=== PATIENT | female | born 1940 | race Caucasian/White ===

== ENCOUNTER 2017-12-26 17:02 | Inpatient (IN) | payer MEDICARE, MEDICAID ==
[2017-12-26] MEDS ORDERED: Sodium Chloride 0.9% 1,000 ML IV ONE (17:25)
--- NOTE | 2017-12-26 17:27 | EDM.PDOC ---
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 No family is present. As per care give, the family is in [place], and the patient is a full code. BP 129/68 Pulse ox 96% Pulse 98 temp 97.4 Onset Date: 12/19/17 Onset Time: 08:00 Duration: Week(s):, Getting Worse Location: Reports: Generalized (mental status) Quality: Reports: Other Severity: Severe Improves with: Reports: Rest Worsens with: Reports: Movement Context: Reports: Other (poor fluid intake) Associated Symptoms: Reports: Confusion, Cough, Loss of Appetite, Weakness - Related Data Allergies Allergy/AdvReac Type Severity Reaction Status Date / Time No Known Allergies Allergy Verified 12/26/17 17:47 Home Meds: Home Meds Calcium Carbonate [Calcium] 1,500 mg PO DAILY 12/26/17 [History] Cholecalciferol (Vitamin D3) [Vitamin D3] 2,000 unit PO DAILY 12/26/17 [History] Fexofenadine [Maricruz] 180 mg PO DAILY 12/26/17 [History] Iron/Multivits,Stress Formula [Stress Formula with Iron] 1 tab PO DAILY [History] Levofloxacin 750 mg PO DAILY 12/26/17 [History] Nabumetone [Relafen] 750 mg PO 18 12/26/17 [History] levETIRAcetam [Keppra] 500 mg PO 12/26/17 [History] ED ROS GENERAL - Review of Systems Review Of Systems: Unable To Obtain (nonverbal) - Physical Exam Exam: See Below Exam Limited By: Altered Mental Status General Appearance: Lethargic, Moderate Distress Eye Exam: Right Eye: Other (Right puplile 2 mm left pupil 4 mm) Ears: Normal External Exam Nose: Normal Inspection Throat/Mouth: Normal Oropharynx, No Airway Compromise, Other (dry mucosal membrane) Head Exam: Atraumatic, Normocephalic Neck: Normal Inspection, Supple, Non-Tender Respiratory/Chest: No Respiratory Distress, Lungs Clear, Normal Breath Sounds Cardiovascular: Normal Peripheral Pulses, Regular Rate, Rhythm, No Edema GI/Abdominal: Normal Bowel Sounds, Soft, Non-Tender, No Organomegaly (Female) Exam: Deferred Rectal (Female) Exam: Deferred Neuro Exam (Abbreviated): Inattentive, Other (lethargic) Back Exam: Normal Inspection, Full Range of Motion Extremities: Normal Inspection, Normal Range of Motion, Non-Tender, No Pedal Edema, Normal Capillary Refill Psychiatric: Depressed Mood, Flat Affect Skin Exam: Warm, Dry, Intact, Normal Color, No Rash Course - Vital Signs Text/Narrative:: 77 y.o.w.f came from a penitentiary to the ed due due "non healing pneumonia" and declining mental status to thye point she does not anymore eat, drink and communicate. No family is present. As per care give, the family is in [place], and the patient is a full code. BP 129/68 Pulse ox 96% Pulse 98 temp 97.4 PE: Thin 77 y.o.w.f with mental status change, not able to communicate, H/O pneumonia Imaging: Head CT: Ventricular size increased, no other acute changes. CXR right lower lung infiltrate, official report is pending Labs: WBC 12.6 HGB 15.8 Na 166 CL 125 Cr 1.5 JOVANA 54 GFR 33 ProBNP 5057 Impression: Mental status changes, Hypernatremia, Hyperchloremia, dehydration, CRI Tx: NS. Levoquin i.v Reexam: Improved some Plan: Admit to ICU Last Recorded V/S: Last Vital Signs Temp 35.1 C L 12/27/17 04:00 Pulse 100 12/26/17 23:00 Resp 22 H 12/27/17 07:00 BP 87/52 L 12/27/17 07:00 Pulse Ox 93 L 12/27/17 07:00 - Orders/Labs/Meds Orders: Active Orders 24 hr Category Date Time Status Patient Status [ADT] Routine ADT 12/26/17 18:23 Active Oxygen Therapy [RC] PRN Care 12/26/17 18:23 Active VTE/DVT Education [RC] Per Unit Routine Care 12/26/17 18:23 Active Vital Signs [RC] Q4H Care 12/26/17 18:23 Active UA W/MICROSCOPIC [URIN] Stat Lab 12/26/17 23:00 Ordered Sodium Chloride 0.9% [Saline Flush] Med 12/26/17 18:01 Active 10 ml FLUSH ASDIRECTED PRN Saline Lock Insert [OM.PC] Routine Oth 12/26/17 18:01 Ordered Medication Orders Levofloxacin/Dextrose 750 mg/ (Premix) 150 mls @ 100 mls/hr IV Q48H DWAIN Last Admin: 12/27/17 09:35 Dose: 100 mls/hr Sodium Chloride (Normal Saline) 1,000 mls @ 100 mls/hr IV ASDIRECTED DWAIN Last Admin: 12/27/17 08:40 Dose: 100 mls/hr Levetiracetam (Keppra) 500 mg PO [facility] Last Admin: 12/27/17 10:16 Dose: 500 mg Sodium Chloride (Saline Flush) 10 ml FLUSH ASDIRECTED PRN PRN Reason: Keep Vein Open Last Admin: 12/26/17 18:01 Dose: 10 ml Labs: Laboratory Tests 12/26/17 12/26/17 12/26/17 Range/Units 17:58 17:58 17:58 WBC 12.1 H (4.5-12.0) X10-3/uL RBC 5.45 H (3.23-5.20) x10(6)uL Hgb 15.8 H (11.5-15.5) g/dL Hct 49.9 (30.0-51.3) % MCV 91.6 (80-96) fL MCH 29.0 (27.7-33.6) pg MCHC 31.6 L (32.2-35.4) g/dL RDW 14.5 (11.5-15.5) % Plt Count 176 (125-369) X10(3)uL MPV 10.6 H (7.4-10.4) fL Neut % (Auto) 74.0 (46-82) % Lymph % (Auto) 14.0 (13-37) % [place] % (Auto) 8.5 (4-12) % Eos % (Auto) 3 (1.0-5.0) % Baso % (Auto) 1 (0-2) % Neut # (Auto) 9.0 H (1.6-8.3) # Lymph # (Auto) 1.7 (0.6-5.0) # [place] # (Auto) 1.0 (0.0-1.3) # Eos # (Auto) 0.3 (0.0-0.8) # Baso # (Auto) 0.1 (0.0-0.2) # Sodium 166 H* (135-145) mmol/L Potassium 4.0 (3.5-5.3) mmol/L Chloride 125 H* (100-110) mmol/L Carbon Dioxide 30 (21-32) mmol/L BUN 54 H (7-18) mg/dL Creatinine 1.5 H (0.55-1.02) mg/dL Est Cr Clr Drug Dosing TNP Estimated GFR (MDRD) 33 L (>60) BUN/Creatinine Ratio 36.0 H (9-20) Glucose 98 (80-116) mg/dL Calcium 10.7 H (8.6-10.2) mg/dL NT-Pro-B Natriuret Pep 5405 H* (<=450) pg/mL Meds: Medications Generic Name Dose Route Start Last Admin Trade Name Freq PRN Reason Stop Dose Admin Levofloxacin/Dextrose 750 mg/ 150 mls @ 100 mls/hr 12/27/17 09:00 12/27/17 09 :35 Premix IV 100 mls/hr Q48H DWAIN Administration Sodium Chloride 1,000 mls @ 100 mls/hr 12/27/17 08:45 12/27/17 08:40 Normal Saline IV 100 mls/hr ASDIRECTED DWAIN Administration Levetiracetam 500 mg 12/27/17 10:00 12/27/17 10:16 Keppra PO 500 mg 10,18 DWAIN Administration Sodium Chloride 10 ml 12/26/17 18:01 12/26/17 18:01 Saline Flush FLUSH 10 ml ASDIRECTED PRN Administration Keep Vein Open Discontinued Medications Generic Name Dose Route Start Last Admin Trade Name Freq PRN Reason Stop Dose Admin Sodium Chloride 1,000 mls @ 999 mls/hr 12/26/17 17:25 12/26/17 18:00 Normal Saline IV 12/26/17 18:25 999 mls/hr .BOLUS ONE Administration Sodium Chloride 1,000 mls @ 999 mls/hr 12/26/17 18:30 12/26/17 19:04 Sodium Chloride 0.45% IV 999 mls/hr ASDIRECTED DWAIN Administration Sodium Chloride 1,000 mls @ 125 mls/hr 12/26/17 20:00 12/27/17 04:33 Sodium Chloride 0.45% IV 125 mls/hr ASDIRECTED DWAIN Administration Departure - Departure Time of Disposition: 22:00 Disposition: Admitted As Inpatient 64 Condition: Fair Clinical Impression: Hypernatremia - Discharge Information - My Orders Last 24 Hours: My Active Orders 12/26/17 18:01 Sodium Chloride 0.9% [Saline Flush] 10 ml FLUSH ASDIRECTED PRN Saline Lock Insert [OM.PC] Routine 12/26/17 18:23 Patient Status [ADT] Routine Oxygen Therapy [RC] PRN VTE/DVT Education [RC] Per Unit Routine Vital Signs [RC] Q4H 12/26/17 23:00 UA W/MICROSCOPIC [URIN] Stat - Assessment/Plan Last 24 Hours: My Active Orders 12/26/17 18:01 Sodium Chloride 0.9% [Saline Flush] 10 ml FLUSH ASDIRECTED PRN Saline Lock Insert [OM.PC] Routine 12/26/17 18:23 Patient Status [ADT] Routine Oxygen Therapy [RC] PRN VTE/DVT Education [RC] Per Unit Routine Vital Signs [RC] Q4H 12/26/17 23:00 UA W/MICROSCOPIC [URIN] Stat
[2017-12-26] MEDS: Sodium Chloride 0.9% 10 ML Syringe FLUSH PRN (18:01)
[2017-12-26] MEDS ORDERED: Sodium Chloride 0.45% 1,000 ML IV SCH (18:30)
[2017-12-26] MEDS: Sodium Chloride 0.45% 1,000 ML IV SCH (19:05)
[2017-12-26] MEDS ORDERED: Sodium Chloride 0.9% 1,000 ML IV SCH (20:00)
[2017-12-27] MEDS: Sodium Chloride 0.45% 1,000 ML IV SCH (04:33)
[2017-12-27] MEDS: Sodium Chloride 0.9% 1,000 ML IV SCH ×2 (08:40→20:03)
[2017-12-27] MEDS ORDERED: Levofloxacin/Dextrose 5%-Water 750 MG in Premix Bag 1 BAG IV SCH (09:00)
[2017-12-27] MEDS: levETIRAcetam 500 MG Tab PO SCH ×2 (10:16→18:28)
--- NOTE | 2017-12-27 11:07 | CT ---
INDICATION: Mental status changes. CT HEAD WITHOUT CONTRAST: Serial contiguous 2.5 and 5-mm sections were obtained through the brain without contrast, 12/26/2017, and compared with 02/25. Total Exam DLP = 1094.32 mGy-cm. A shunt tube is again noted in place at the foramen magnum extending through the posterior fossa, into the posteroparietal area and then into the temporal area on the left. No other cranial abnormality was identified. There is grove for the tube in the occipital bone. There appears to be a small air-fluid level in the left maxillary antrum. Paranasal sinuses were otherwise unremarkable. Mastoid air cells are very minimal in number. Degenerative changes are noted at the atlantoodontoid joint. Calcifications are noted in the vertebral and internal carotid arteries as previously, and appear more prominent at this time. Massively prominent lateral ventricles are again noted, much larger on the left than right, with the termination of the shunt tube at the temporal horn of the left lateral ventricle. No shift of midline structures was identified. A slight increase in size of the lateral ventricles is suggested compared with the previous study of 2008. Cortical sulci appear similar. No other significant interval change or acute process, such as a bleeding site or hematoma could be identified. IMPRESSION: 1. No definite acute abnormality. However, the lateral ventricles appear to be slightly more prominent than on the previous study. 2. Shunt tube remains in place. 3. Cerebrovascular disease is present with arterial calcifications slightly more prominent in the vertebral and internal carotid arteries. 4. Question sinusitis left maxillary antrum. Report was called to Dr. Figueredo at 1833 hours, 12/26/2017 [facility]
--- NOTE | 2017-12-27 11:15 | CR ---
INDICATION: Mental status changes. CHEST: Portable AP upright view of the chest 12/26/2017 was compared with 12/23 image from the clinic and revealed an appearance of increased prominence of upper lung field pulmonary vasculature, raising question of a mild degree of CHF or pulmonary vascular congestion from other etiology. The heart does appear to be somewhat enlarged, compatible with CHF. The aorta is tortuous and calcified in the arch area. Mass density is noted at the azygos node area. This is unchanged. IMPRESSION: 1. ASHD with cardiomegaly, possible mild or early CHF. Minimal interstitial lung edema versus fibrosis also. 2. ? Large mass at the azygos node area - suprahilar on the right - neoplasia vs. Pulmonary artery dilatation. MTDD
--- NOTE | 2017-12-27 11:27 | CT ---
INDICATION: Abnormal chest x-ray, non-resolving pneumonia. Chronic renal failure. COMPUTERIZED TOMOGRAPHY OF THE CHEST WITHOUT CONTRAST: Spiral 2.5-mm axial sections were obtained through the chest with sagittal and coronal reconstructions, 12/27/2017. Comparison chest x-ray from 12/26/2017 is noted. Total Exam DLP = 256.59 mGy-cm. Moderate apical scarring is noted on the right, minimal on the left. On the right, the scarring extends into the suprahilar area. What appears to be fibrosis is noted in the lingula. The possibility of a mass in that area is difficult to entirely exclude, but is felt to be less likely than fibrosis. There also appears to be fibrosis in the middle lobe of mild degree. Minimal patchy pneumonia is difficult to entirely exclude in some of these areas of probable fibrosis. However, no consolidating pneumonia or effusion was identified. No nodular masses are noted in the lungs, torito, or mediastinum. The appearance of a mass in the area of the azygos node - suprahilar on the right - is produced by a dilated right main pulmonary artery, which measured 32 mm transversely. The left is also dilated, measuring 34 mm. The main pulmonary artery measured 42 mm, which is also significantly enlarged, the upper limits of normal being approximately 29 mm. No mediastinal masses were seen. Calcifications are noted in the aorta, which is normal in caliber. Calcifications are also noted in coronary arteries with suggestion of mild cardiac enlargement. No gross abnormality is noted in the upper abdomen included on the study. IMPRESSION: 1. Pulmonary artery dilatation responsible for the appearance of a mass in the right suprahilar - azygos node area. Pulmonary hypertension is suggested with this appearance. Exact etiology is indeterminate. 2. ASHD with mild cardiomegaly. 3. Multiple areas of heavy markings in the lungs, likely fibrotic in nature, although minimal patchy pneumonia is difficult to entirely exclude in some of these areas. No gross consolidating pneumonia or effusion was seen. 4. ASD. MTDD
--- NOTE | 2017-12-27 14:05 | PCM.HP ---
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 A urinalysis was ordered but not collected and while waiting on this patient was brought into the clinic on 12/23 and seen by a provider. She wasn't eating well, was not as responsive, they had a difficult time collecting the urine sample and when brought into the clinic her blood pressure was 96/70 with a pulse of 102. Was afebrile but had rales on the right lower lobe. Blood work showed a white count of almost 17,000, hemoglobin 16.4, significant left shift of 14.4. Test x-ray was done and showed possible bibasilar pneumonia, nodular mass in the mediastinum on the right. CT scan was recommended for further evaluation. Patient was treated with levofloxacin 750 mg by mouth daily for 5 days and discharged from the clinic back to the facility. She presented to the emergency department on the day of admission with increased lethargy, not taking by mouth intake, essentially fairly nonresponsive. The patient was found to have a sodium of 166, creatinine of 1.5 , and was admitted for severe dehydration and hypernatremia. Patient normally can speak but is not oriented in her speech. She is interactive with caregivers. She is nonambulatory at the facility. She sometimes takes with her brother on the phone but is unable to have a conversation. Usually is able to eat with assistance and drink with assistance. 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 #3 Hydrocephalus with a shunt in place #4 Epilepsy, complex partial as a result of head injury. 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 #6 Osteoarthritis #7 Macular degeneration Social history: Patient lives in a [facility]. Her brother Semaj is her guardian and power of business attorney. She previously lived with her mother up until her mother about 10 years ago. Nonsmoker, nondrinker. Single, no children. Family history: Noncontributory - Related Data Allergies/Adverse Reactions: Allergies Allergy/AdvReac Type Severity Reaction Status Date / Time No Known Allergies Allergy Verified 12/26/17 17:47 Home Medications: Home Meds Calcium Carbonate [Calcium] 1,500 mg PO DAILY 12/26/17 [History] Cholecalciferol (Vitamin D3) [Vitamin D3] 2,000 unit PO DAILY 12/26/17 [History] Fexofenadine [Maricruz] 180 mg PO DAILY 12/26/17 [History] Iron/Multivits,Stress Formula [Stress Formula with Iron] 1 tab PO DAILY [History] Levofloxacin 750 mg PO DAILY 12/26/17 [History] Nabumetone [Relafen] 750 mg PO 18 12/26/17 [History] levETIRAcetam [Keppra] 500 mg PO 12/26/17 [History] Past Medical History HEENT History: Reports: Cataract, Macular Degeneration, Other (See Below) Other HEENT History: ptosis of the eyelid Cardiovascular History: Reports: High Cholesterol, Other (See Below) Other Cardiovascular History: tachacardia Respiratory History: Reports: Pulmonary Fibrosis Genitourinary History: Reports: Urinary Incontinence Musculoskeletal History: Reports: Arthritis, Osteoporosis Neurological History: Reports: Seizure, Other (See Below) Other Neuro History: Hydrocephalus Psychiatric History: Reports: Developmental Delay Social & Family History - Family History Family Medical History: Noncontributory - Tobacco Use Smoking Status *Q: Unknown Ever Smoked Second Hand Smoke Exposure: No - Caffeine Use Caffeine Use: Reports: Other Other Caffeine Use: unknown - Recreational Drug Use Recreational Drug Use: No H&P Review of Systems - Review of Systems: Review Of Systems: Unable To Obtain (See ROS) Exam - Exam Exam: See Below - Vital Signs Vital Signs: Last Vital Signs Temp 35.6 C 12/27/17 08:00 Pulse 99 12/27/17 11:00 Resp 20 12/27/17 11:00 BP 99/60 12/27/17 11:00 Pulse Ox 91 L 12/27/17 11:00 Weight: 48.807 kg - Exam General: Lethargic HEENT: PERRLA, Conjunctiva Clear (mucous membranes dry. Eyes somewhat sunken. Does smile and make eye contact but doesn't verbally respond. Doesn't follow commands but does move spontaneously. Asymmetric smile with mild droop on the left. ) Neck: Supple Lungs: Clear to Auscultation, Normal Respiratory Effort Cardiovascular: Regular Rate, Regular Rhythm, Normal S1, Normal S2 GI/Abdominal Exam: Normal Bowel Sounds, Soft, Non-Tender, No Distention Extremities: No Pedal Edema - Patient Data Lab Results Last 24 hrs: Laboratory Results - last 24 hr 12/26/17 12/26/17 12/26/17 Range/Units 17:58 17:58 17:58 WBC 12.1 H (4.5-12.0) X10-3/uL RBC 5.45 H (3.23-5.20) x10(6)uL Hgb 15.8 H (11.5-15.5) g/dL Hct 49.9 (30.0-51.3) % MCV 91.6 (80-96) fL MCH 29.0 (27.7-33.6) pg MCHC 31.6 L (32.2-35.4) g/dL RDW 14.5 (11.5-15.5) % Plt Count 176 (125-369) X10(3)uL MPV 10.6 H (7.4-10.4) fL Neut % (Auto) 74.0 (46-82) % Lymph % (Auto) 14.0 (13-37) % [place] % (Auto) 8.5 (4-12) % Eos % (Auto) 3 (1.0-5.0) % Baso % (Auto) 1 (0-2) % Neut # (Auto) 9.0 H (1.6-8.3) # Lymph # (Auto) 1.7 (0.6-5.0) # [place] # (Auto) 1.0 (0.0-1.3) # Eos # (Auto) 0.3 (0.0-0.8) # Baso # (Auto) 0.1 (0.0-0.2) # Sodium 166 H* (135-145) mmol/L Potassium 4.0 (3.5-5.3) mmol/L Chloride 125 H* (100-110) mmol/L Carbon Dioxide 30 (21-32) mmol/L BUN 54 H (7-18) mg/dL Creatinine 1.5 H (0.55-1.02) mg/dL Est Cr Clr Drug Dosing TNP Estimated GFR (MDRD) 33 L (>60) BUN/Creatinine Ratio 36.0 H (9-20) Glucose 98 (80-116) mg/dL Calcium 10.7 H (8.6-10.2) mg/dL Total Bilirubin (0.1-1.3) mg/dL AST (5-25) IU/L ALT (12-36) U/L Alkaline Phosphatase (56-112) IU/L Troponin I (<0.017-0.056) ng/mL NT-Pro-B Natriuret Pep 5405 H* (<=450) pg/mL Total Protein (6.0-8.0) g/dL Albumin (3.2-4.6) g/dL Globulin g/dL Albumin/Globulin Ratio Urine Color (YELLOW) Urine Appearance (CLEAR) Urine pH (5.0-6.5) Ur Specific [place] (1.010-1.025) Urine Protein (NEGATIVE) mg/dL Urine Glucose (UA) (NEGATIVE) mg/dL Urine Ketones (NEGATIVE) mg/dL Urine Occult Blood (NEGATIVE) Urine Nitrite (NEGATIVE) Urine Bilirubin (NEGATIVE) Urine Urobilinogen (NEGATIVE) mg/dL Ur Leukocyte Esterase (NEGATIVE) Urine RBC (0) Urine WBC (0) Ur Squamous Epith Cells (NS,R,O) Amorphous Sediment Urine Bacteria (NS) 12/26/17 12/27/17 12/27/17 Range/Units 23:00 08:00 08:00 WBC 8.4 (4.5-12.0) X10-3/uL RBC 4.41 (3.23-5.20) x10(6)uL Hgb 13.3 (11.5-15.5) g/dL Hct 40.3 (30.0-51.3) % MCV 91.2 (80-96) fL MCH 30.0 (27.7-33.6) pg MCHC 32.9 (32.2-35.4) g/dL RDW 14.6 (11.5-15.5) % Plt Count 116 L (125-369) X10(3)uL MPV 10.0 (7.4-10.4) fL Neut % (Auto) 68.4 (46-82) % Lymph % (Auto) 18.0 (13-37) % [place] % (Auto) 6.5 (4-12) % Eos % (Auto) 7 H (1.0-5.0) % Baso % (Auto) 1 (0-2) % Neut # (Auto) 5.8 (1.6-8.3) # Lymph # (Auto) 1.5 (0.6-5.0) # [place] # (Auto) 0.5 (0.0-1.3) # Eos # (Auto) 0.6 (0.0-0.8) # Baso # (Auto) 0.0 (0.0-0.2) # Sodium 154 H D (135-145) mmol/L Potassium 3.8 (3.5-5.3) mmol/L Chloride 121 H* (100-110) mmol/L Carbon Dioxide 24 (21-32) mmol/L BUN 38 H D (7-18) mg/dL Creatinine 1.1 H (0.55-1.02) mg/dL Est Cr Clr Drug Dosing 29.79 Estimated GFR (MDRD) 48 L (>60) BUN/Creatinine Ratio 34.5 H (9-20) Glucose 85 (80-116) mg/dL Calcium 8.4 L D (8.6-10.2) mg/dL Total Bilirubin 0.8 (0.1-1.3) mg/dL AST < 5 L (5-25) IU/L ALT 31 (12-36) U/L Alkaline Phosphatase 76 (56-112) IU/L Troponin I (<0.017-0.056) ng/mL NT-Pro-B Natriuret Pep (<=450) pg/mL Total Protein 5.4 L (6.0-8.0) g/dL Albumin 2.3 L (3.2-4.6) g/dL Globulin 3.1 g/dL Albumin/Globulin Ratio 0.7 Urine Color Yellow (YELLOW) Urine Appearance Clear (CLEAR) Urine pH 5.0 (5.0-6.5) Ur Specific [place] 1.020 (1.010-1.025) Urine Protein Negative (NEGATIVE) mg/dL Urine Glucose (UA) Normal (NEGATIVE) mg/dL Urine Ketones Negative (NEGATIVE) mg/dL Urine Occult Blood Negative (NEGATIVE) Urine Nitrite Negative (NEGATIVE) Urine Bilirubin Negative (NEGATIVE) Urine Urobilinogen Normal (NEGATIVE) mg/dL Ur Leukocyte Esterase Negative (NEGATIVE) Urine RBC 0-5 (0) Urine WBC 0-5 (0) Ur Squamous Epith Cells Few H (NS,R,O) Amorphous Sediment Few Urine Bacteria Few H (NS) 12/27/17 Range/Units 08:00 WBC (4.5-12.0) X10-3/uL RBC (3.23-5.20) x10(6)uL Hgb (11.5-15.5) g/dL Hct (30.0-51.3) % MCV (80-96) fL MCH (27.7-33.6) pg MCHC (32.2-35.4) g/dL RDW (11.5-15.5) % Plt Count (125-369) X10(3)uL MPV (7.4-10.4) fL Neut % (Auto) (46-82) % Lymph % (Auto) (13-37) % [place] % (Auto) (4-12) % Eos % (Auto) (1.0-5.0) % Baso % (Auto) (0-2) % Neut # (Auto) (1.6-8.3) # Lymph # (Auto) (0.6-5.0) # [place] # (Auto) (0.0-1.3) # Eos # (Auto) (0.0-0.8) # Baso # (Auto) (0.0-0.2) # Sodium (135-145) mmol/L Potassium (3.5-5.3) mmol/L Chloride (100-110) mmol/L Carbon Dioxide (21-32) mmol/L BUN (7-18) mg/dL Creatinine (0.55-1.02) mg/dL Est Cr Clr Drug Dosing Estimated GFR (MDRD) (>60) BUN/Creatinine Ratio (9-20) Glucose (80-116) mg/dL Calcium (8.6-10.2) mg/dL Total Bilirubin (0.1-1.3) mg/dL AST (5-25) IU/L ALT (12-36) U/L Alkaline Phosphatase (56-112) IU/L Troponin I 0.239 H* (<0.017-0.056) ng/mL NT-Pro-B Natriuret Pep (<=450) pg/mL Total Protein (6.0-8.0) g/dL Albumin (3.2-4.6) g/dL Globulin g/dL Albumin/Globulin Ratio Urine Color (YELLOW) Urine Appearance (CLEAR) Urine pH (5.0-6.5) Ur Specific [place] (1.010-1.025) Urine Protein (NEGATIVE) mg/dL Urine Glucose (UA) (NEGATIVE) mg/dL Urine Ketones (NEGATIVE) mg/dL Urine Occult Blood (NEGATIVE) Urine Nitrite (NEGATIVE) Urine Bilirubin (NEGATIVE) Urine Urobilinogen (NEGATIVE) mg/dL Ur Leukocyte Esterase (NEGATIVE) Urine RBC (0) Urine WBC (0) Ur Squamous Epith Cells (NS,R,O) Amorphous Sediment Urine Bacteria (NS) Result Diagrams: 12/27/17 08:00 12/27/17 08:00 Imaging Impressions Last 24 hrs: I ordered a chest CT this morning to further evaluate for possible infectious etiology and to look at this area of a mass in the right suprahilar region. Final report showed pulmonary artery dilatation which is causing the appearance of a mass, suggest pulmonary hypertension. ASHD with mild cardiomegaly. Multiple areas of heavy markings in the lungs, likely fibrotic in nature, although minimal patchy pneumonia is difficult to entirely exclude in some of these areas. No gross consolidating pneumonia or effusion seen. EKG INTERPRETATION EKG Date: 12/27/17 Rhythm: NSR EKG Interpretation Comments: Normal sinus rhythm, rate 96, no ST elevation or depression but the patient has flipped T waves across all leads. The QTc interval prolonged at 495. The patient has IVCD. No prior for comparison. - Problem List (1) Hypernatremia SNOMED Code(s): 74529525 ICD Code: E87.0 - HYPEROSMOLALITY AND HYPERNATREMIA Status: Acute Current Visit: Yes Problem Details: And has severe dehydration and free water deficit. She was started on normal saline in the emergency department and then changed to half normal saline after fluid bolus. Given that she has already dropped about 12 points in about 12 hours I'm going to put her back on normal saline and continue fluids at 100 mL an hour to slow the decline of her sodium. Patient has already started to improve her mental status and she is now arousable and making some sounds although not speaking. Recheck sodium at 1600. (2) Pneumonia SNOMED Code(s): 463464254 ICD Code: J18.9 - PNEUMONIA, UNSPECIFIED ORGANISM Status: Acute Current Visit: Yes Problem Details: Patient has on CT question of patchy infiltrate that has been treated already with 5 days of Levaquin. I'm going to hold any further antibiotic therapy. (3) Elevated troponin SNOMED Code(s): 384757868, 060383887, 373857518 ICD Code: R74.8 - ABNORMAL LEVELS OF OTHER SERUM ENZYMES Status: Acute Current Visit: Yes Problem Details: Certainly non-ST elevation SD could be the potential etiology for the patient's initial presentation of lethargy. We' ll repeat troponin this afternoon. I am going to start the patient on low-dose beta nancy metoprolol 12.5 mg and aspirin. (4) Seizure disorder, complex partial SNOMED Code(s): 977136594 ICD Code: G40.209 - LOCAL-REL SYMPTC EPI W CMPLX PRT SEIZ,NOT NTRCT,W/O STAT EPI Status: Acute Current Visit: Yes Problem Details: Continue keppra at outpatient dose. Qualifiers: Epilepsy type: partial symptomatic (5) Acute kidney injury SNOMED Code(s): 63740990 ICD Code: N17.9 - ACUTE KIDNEY FAILURE, UNSPECIFIED Status: Acute Current Visit: Yes Problem Details: Baseline creatinine 0.94 but hasn't been checked since 11/2016. Monitor. (6) Moderate mental retardation SNOMED Code(s): 327415382, 263530368 ICD Code: F71 - MODERATE INTELLECTUAL DISABILITIES Status: Acute Current Visit: Yes Problem Details: Work with staff at [facility] to learn how to meet patient's psychosocial and physical needs. (7) DVT prophylaxis SNOMED Code(s): 850225615, 959710954 ICD Code: [id number] - Status: Acute Current Visit: Yes Problem Details: Heparin BID due to renal injury. SCDs. Problem List Initiated/Reviewed/Updated: Yes Orders Last 24hrs: Active Orders 24 hr Category Date Time Status Patient Status [ADT] Routine ADT 12/26/17 18:23 Active Patient Status [ADT] Routine ADT 12/26/17 18:59 Active Activity as Tolerated [RC] 08,12,18 Care 12/27/17 10:13 Active Cardiac Monitoring [RC] CONTINUOUS Care 12/26/17 19:02 Active Height and Weight [RC] DAILY Care 12/27/17 13:47 Ordered Intake and Output [RC] QSHIFT Care 12/27/17 13:48 Ordered Oxygen Therapy [RC] PRN Care 12/26/17 18:23 Active Oxygen Therapy [RC] PRN Care 12/26/17 18:59 Active Oxygen Therapy [RC] PRN Care 12/27/17 13:47 Ordered Pulse Oximetry [RC] PRN Care 12/27/17 13:49 Ordered Up ad Renu [RC] ASDIRECTED Care 12/27/17 13:47 Ordered Up to Chair [RC] ASDIRECTED Care 12/27/17 13:47 Ordered VTE/DVT Education [RC] Per Unit Routine Care 12/26/17 18:23 Active VTE/DVT Education [RC] Per Unit Routine Care 12/26/17 18:59 Active VTE/DVT Education [RC] Per Unit Routine Care 12/27/17 13:47 Ordered Vital Signs [RC] Q4H Care 12/26/17 18:23 Active Vital Signs [RC] Q4H Care 12/27/17 13:47 Ordered Mechanical Soft Diet [DIET] Diet 12/27/17 Breakfast Ordered BASIC METABOLIC PANEL,BMP [CHEM] AM Lab 12/28/17 05:11 Ordered CBC WITH AUTO DIFF [HEME] AM Lab 12/28/17 05:11 Ordered UA W/MICROSCOPIC [URIN] Stat Lab 12/26/17 23:00 Ordered Heparin Sodium Med 12/27/17 14:00 Ordered 5,000 units SUBCUT Q12H Levofloxacin/Dextrose 5%-Water [Levaquin in D5W 750 MG/ Med 12/27/17 09:00 Active 150 ML] 750 mg Premix Bag 1 bag IV Q48H Sodium Chloride 0.9% [Normal Saline] 1,000 ml Med 12/27/17 08:45 Active IV ASDIRECTED Sodium Chloride 0.9% [Saline Flush] Med 12/26/17 18:01 Active 10 ml FLUSH ASDIRECTED PRN levETIRAcetam [Keppra] Med 12/27/17 10:00 Active 500 mg PO 10,18 Saline Lock Insert [OM.PC] Routine Oth 12/26/17 18:01 Ordered Sequential Compression Device [OM.PC] Per Unit Routine Oth 12/27/17 13:49 Ordered Resuscitation Status Routine Resus Stat 12/27/17 13:47 Ordered EKG 12 Lead [EK] Stat Ther 12/27/17 08:10 Ordered Medication Orders Levofloxacin/Dextrose 750 mg/ (Premix) 150 mls @ 100 mls/hr IV Q48H [facility] Last Admin: 12/27/17 09:35 Dose: 100 mls/hr Sodium Chloride (Normal Saline) 1,000 mls @ 100 mls/hr IV ASDIRECTED [facility] Last Admin: 12/27/17 08:40 Dose: 100 mls/hr Levetiracetam (Keppra) 500 mg PO [facility] Last Admin: 12/27/17 10:16 Dose: 500 mg Sodium Chloride (Saline Flush) 10 ml FLUSH ASDIRECTED PRN PRN Reason: Keep Vein Open Last Admin: 12/26/17 18:01 Dose: 10 ml
[2017-12-27] MEDS: Heparin Sodium 5,000 Units/ML Vial SUBCUT SCH (14:35)
[2017-12-27] MEDS: Aspirin 81 MG Tab.Chew PO SCH (15:06)
[2017-12-27] MEDS: Metoprolol Succinate 25 MG Tab.ER PO SCH (15:07)
[2017-12-28] MEDS: Heparin Sodium 5,000 Units/ML Vial SUBCUT SCH (01:28)
[2017-12-28] MEDS: Sodium Chloride 0.9% 1,000 ML IV SCH (05:53)
--- NOTE | 2017-12-28 07:16 | PCM.PN ---
- General Info Date of Service: 12/28/17 Subjective Update: Patient much improved today with mental status. She responds verbally to me although I don't understand what she is saying all the time. She talks about having photos taken to give pictures to the children. She does not follow commands but is smiling and cheerful. - Patient Data Vitals - Most Recent: Last Vital Signs Temp 35.4 C 12/28/17 04:00 Pulse 75 12/28/17 04:00 Resp 20 12/28/17 04:00 BP 96/64 12/28/17 06:30 Pulse Ox 97 12/28/17 04:00 Weight - Most Recent: 49.714 kg I&O - Last 24 Hours: Intake & Output 12/27/17 12/28/17 12/28/17 22:59 06:59 14:59 Intake Total 790 810 Output Total 325 496 Balance 465 314 Lab Results Last 24 Hours: Laboratory Results - last 24 hr 12/27/17 12/27/17 12/27/17 Range/Units 08:00 08:00 08:00 WBC 8.4 (4.5-12.0) X10-3/uL RBC 4.41 (3.23-5.20) x10(6)uL Hgb 13.3 (11.5-15.5) g/dL Hct 40.3 (30.0-51.3) % MCV 91.2 (80-96) fL MCH 30.0 (27.7-33.6) pg MCHC 32.9 (32.2-35.4) g/dL RDW 14.6 (11.5-15.5) % Plt Count 116 L (125-369) X10(3)uL MPV 10.0 (7.4-10.4) fL Neut % (Auto) 68.4 (46-82) % Lymph % (Auto) 18.0 (13-37) % Snyder % (Auto) 6.5 (4-12) % Eos % (Auto) 7 H (1.0-5.0) % Baso % (Auto) 1 (0-2) % Neut # (Auto) 5.8 (1.6-8.3) # Lymph # (Auto) 1.5 (0.6-5.0) # Snyder # (Auto) 0.5 (0.0-1.3) # Eos # (Auto) 0.6 (0.0-0.8) # Baso # (Auto) 0.0 (0.0-0.2) # Sodium 154 H D (135-145) mmol/L Potassium 3.8 (3.5-5.3) mmol/L Chloride 121 H* (100-110) mmol/L Carbon Dioxide 24 (21-32) mmol/L BUN 38 H D (7-18) mg/dL Creatinine 1.1 H (0.55-1.02) mg/dL Est Cr Clr Drug Dosing 29.79 mL/min Estimated GFR (MDRD) 48 L (>60) BUN/Creatinine Ratio 34.5 H (9-20) Glucose 85 (80-116) mg/dL Calcium 8.4 L D (8.6-10.2) mg/dL Total Bilirubin 0.8 (0.1-1.3) mg/dL AST < 5 L (5-25) IU/L ALT 31 (12-36) U/L Alkaline Phosphatase 76 (56-112) IU/L Troponin I 0.239 H* (<0.017-0.056) ng/mL Total Protein 5.4 L (6.0-8.0) g/dL Albumin 2.3 L (3.2-4.6) g/dL Globulin 3.1 g/dL Albumin/Globulin Ratio 0.7 12/27/1718 12/28/17 Range/Units 16:05 16:05 06:00 WBC 7.6 (4.5-12.0) X10-3/uL RBC 4.16 (3.23-5.20) x10(6)uL Hgb 12.6 (11.5-15.5) g/dL Hct 37.6 (30.0-51.3) % MCV 90.4 (80-96) fL MCH 30.3 (27.7-33.6) pg MCHC 33.5 (32.2-35.4) g/dL RDW 14.4 (11.5-15.5) % Plt Count 106 L (125-369) X10(3)uL MPV 11.0 H (7.4-10.4) fL Neut % (Auto) 70.1 (46-82) % Lymph % (Auto) 17.1 (13-37) % Snyder % (Auto) 7.5 (4-12) % Eos % (Auto) 5 (1.0-5.0) % Baso % (Auto) 0 (0-2) % Neut # (Auto) 5.3 (1.6-8.3) # Lymph # (Auto) 1.3 (0.6-5.0) # Snyder # (Auto) 0.6 (0.0-1.3) # Eos # (Auto) 0.4 (0.0-0.8) # Baso # (Auto) 0.0 (0.0-0.2) # Sodium 153 H (135-145) mmol/L Potassium (3.5-5.3) mmol/L Chloride (100-110) mmol/L Carbon Dioxide (21-32) mmol/L BUN (7-18) mg/dL Creatinine (0.55-1.02) mg/dL Est Cr Clr Drug Dosing mL/min Estimated GFR (MDRD) (>60) BUN/Creatinine Ratio (9-20) Glucose (80-116) mg/dL Calcium (8.6-10.2) mg/dL Total Bilirubin (0.1-1.3) mg/dL AST (5-25) IU/L ALT (12-36) U/L Alkaline Phosphatase (56-112) IU/L Troponin I 0.150 H* (<0.017-0.056) ng/mL Total Protein (6.0-8.0) g/dL Albumin (3.2-4.6) g/dL Globulin g/dL Albumin/Globulin Ratio 12/28/17 Range/Units 06:00 WBC (4.5-12.0) X10-3/uL RBC (3.23-5.20) x10(6)uL Hgb (11.5-15.5) g/dL Hct (30.0-51.3) % MCV (80-96) fL MCH (27.7-33.6) pg MCHC (32.2-35.4) g/dL RDW (11.5-15.5) % Plt Count (125-369) X10(3)uL MPV (7.4-10.4) fL Neut % (Auto) (46-82) % Lymph % (Auto) (13-37) % Snyder % (Auto) (4-12) % Eos % (Auto) (1.0-5.0) % Baso % (Auto) (0-2) % Neut # (Auto) (1.6-8.3) # Lymph # (Auto) (0.6-5.0) # Snyder # (Auto) (0.0-1.3) # Eos # (Auto) (0.0-0.8) # Baso # (Auto) (0.0-0.2) # Sodium 153 H (135-145) mmol/L Potassium 3.4 L (3.5-5.3) mmol/L Chloride 122 H* (100-110) mmol/L Carbon Dioxide 21 (21-32) mmol/L BUN 29 H (7-18) mg/dL Creatinine 1.0 (0.55-1.02) mg/dL Est Cr Clr Drug Dosing 32.77 mL/min Estimated GFR (MDRD) 53 L (>60) BUN/Creatinine Ratio 29.0 H (9-20) Glucose 82 (80-116) mg/dL Calcium 8.4 L (8.6-10.2) mg/dL Total Bilirubin (0.1-1.3) mg/dL AST (5-25) IU/L ALT (12-36) U/L Alkaline Phosphatase (56-112) IU/L Troponin I (<0.017-0.056) ng/mL Total Protein (6.0-8.0) g/dL Albumin (3.2-4.6) g/dL Globulin g/dL Albumin/Globulin Ratio Med Orders - Current: Current Medications Aspirin (Aspirin) 81 mg PO DAILY [facility] Last Admin: 12/27/17 15:06 Dose: 81 mg Sodium Chloride (Sodium Chloride 0.45%) 1,000 mls @ 100 mls/hr IV ASDIRECTED [facility] Levetiracetam (Keppra) 500 mg PO [facility] Last Admin: 12/27/17 18:28 Dose: 500 mg Metoprolol Succinate (Toprol Xl) 12.5 mg PO DAILY [facility] Last Admin: 12/27/17 15:07 Dose: 12.5 mg Sodium Chloride (Saline Flush) 10 ml FLUSH ASDIRECTED PRN PRN Reason: Keep Vein Open Last Admin: 12/26/17 18:01 Dose: 10 ml Discontinued Medications Heparin Sodium (Porcine) (Heparin Sodium) 5,000 units SUBCUT Q12H [facility] Last Admin: 12/28/17 01:28 Dose: 5,000 units Sodium Chloride (Normal Saline) 1,000 mls @ 999 mls/hr IV .BOLUS ONE Stop: 12/26/17 18:25 Last Admin: 12/26/17 18:00 Dose: 999 mls/hr Sodium Chloride (Sodium Chloride 0.45%) 1,000 mls @ 999 mls/hr IV ASDIRECTED [facility] Last Admin: 12/26/17 19:04 Dose: 999 mls/hr Sodium Chloride (Sodium Chloride 0.45%) 1,000 mls @ 125 mls/hr IV ASDIRECTED [facility] Last Admin: 12/27/17 04:33 Dose: 125 mls/hr Levofloxacin/Dextrose 750 mg/ (Premix) 150 mls @ 100 mls/hr IV Q48H [facility] Last Admin: 12/27/17 09:35 Dose: 100 mls/hr Sodium Chloride (Normal Saline) 1,000 mls @ 100 mls/hr IV ASDIRECTED [facility] Last Admin: 12/28/17 05:53 Dose: 100 mls/hr - Exam General: Alert, No Acute Distress HEENT: Pupils Equal, Pupils Reactive Neck: Supple Lungs: Normal Respiratory Effort (good air movement.), Crackles (bases bilaterally in bed.) Cardiovascular: Regular Rate, Regular Rhythm, No Murmurs GI/Abdominal Exam: Normal Bowel Sounds, Soft, Non-Tender, No Distention Extremities: No Pedal Edema Skin: Warm, Dry, Intact Psy/Mental Status: Alert - Problem List & Annotations (1) Hypernatremia SNOMED Code(s): 86755432 Code(s): E87.0 - HYPEROSMOLALITY AND HYPERNATREMIA Status: Acute Current Visit: Yes Annotation/Comment:: Sodium was 153 last night and held steady overnight at 153. I am going to change her to 1/2 NS this am to increase free water and continue to monitor. (2) Pneumonia SNOMED Code(s): 642174698 Code(s): J18.9 - PNEUMONIA, UNSPECIFIED ORGANISM Status: Acute Current Visit: Yes Annotation/Comment:: Completed 5 days of levaquin. (3) Elevated troponin SNOMED Code(s): 072151020, 705921380, 719275799 Code(s): R74.8 - ABNORMAL LEVELS OF OTHER SERUM ENZYMES Status: Acute Current Visit: Yes Annotation/Comment:: Presumptive NSTEMI at some point in the recent past. Continue aspirin, beta nancy at low dose. Patient is still somewhat hypotensive. Continue IVF but monitor closely for signs of heart failure. Not a candidate for ACEI at this time due to low blood pressure. (4) Seizure disorder, complex partial SNOMED Code(s): 146275168 Code(s): G40.209 - LOCAL-REL SYMPTC EPI W CMPLX PRT SEIZ,NOT NTRCT,W/O STAT EPI Status: Acute Current Visit: Yes Qualifiers: Epilepsy type: partial symptomatic Annotation/Comment:: Continue keppra at outpatient dose. (5) Acute kidney injury SNOMED Code(s): 79124590 Code(s): N17.9 - ACUTE KIDNEY FAILURE, UNSPECIFIED Status: Acute Current Visit: Yes Annotation/Comment:: Baseline creatinine 0.94 in 2017. Now at 1.0. Continue IVF as above. (6) Moderate mental retardation SNOMED Code(s): 880270028, 953130604 Code(s): F71 - MODERATE INTELLECTUAL DISABILITIES Status: Acute Current Visit: Yes Annotation/Comment:: Work with staff at [facility] to learn how to meet patient's psychosocial and physical needs. (7) DVT prophylaxis SNOMED Code(s): 063377517, 254243852 Code(s): JCV9429 - Status: Acute Current Visit: Yes Annotation/Comment :: Stop heparin due to drop in platelets. Although this may be mostly hemodilutional, now platelets are 106. If stable overnight will start lovenox tomorrow. SCDs. - Problem List Review Problem List Initiated/Reviewed/Updated: Yes - My Orders Last 24 Hours: My Active Orders 12/27/17 08:10 EKG 12 Lead [EK] Stat 12/27/17 10:00 levETIRAcetam [Keppra] 500 mg PO 12/27/17 10:13 Activity as Tolerated [RC] ,,18 12/27/17 13:47 Height and Weight [RC] DAILY Oxygen Therapy [RC] PRN Up ad Renu [RC] ASDIRECTED Up to Chair [RC] ASDIRECTED VTE/DVT Education [RC] Per Unit Routine Vital Signs [RC] 08,12,16,20,00,04 Resuscitation Status Routine 12/27/17 13:48 Intake and Output [RC] 06,14,22 12/27/17 13:49 Pulse Oximetry [RC] PRN Sequential Compression Device [OM.PC] Per Unit Routine 12/27/17 14:45 Aspirin 81 mg PO DAILY Metoprolol Succinate [Toprol XL] 12.5 mg PO DAILY 12/27/17 Breakfast Mechanical Soft Diet [DIET] 12/28/17 07:15 Sodium Chloride 0.45% @ 100 MLS/HR(1,000ml) Sodium Chloride 0.45% 1,000 ml IV ASDIRECTED - Plan Plan:: Code status discussed with brother Semaj. No CPR if patient gets so ill she dies - he would want her to be able to pass peacefully. Possibly intubation depending on the situation and if short term and reversible. Thus DNR/Yes Intubation with limits.
[2017-12-28] MEDS: Sodium Chloride 0.45% 1,000 ML IV SCH ×2 (08:10→18:03)
[2017-12-28] MEDS: Aspirin 81 MG Tab.Chew PO SCH (09:37)
[2017-12-28] MEDS: Metoprolol Succinate 25 MG Tab.ER PO SCH (09:37)
[2017-12-28] MEDS: levETIRAcetam 500 MG Tab PO SCH ×2 (10:33→18:03)
[2017-12-29] MEDS: Sodium Chloride 0.45% 1,000 ML IV SCH (04:19)
[2017-12-29] MEDS: Dextrose 5% in Water 1,000 ML IV SCH (08:35)
[2017-12-29] MEDS: Metoprolol Succinate 25 MG Tab.ER PO SCH (08:40)
[2017-12-29] MEDS: Aspirin 81 MG Tab.Chew PO SCH (08:40)
--- NOTE | 2017-12-29 08:42 | PCM.PN ---
- General Info Date of Service: 12/29/17 Subjective Update: Patient is a 77-year-old female currently on hospital day #4 in the ICU for severe hypernatremia. Sodium came down from 153 yesterday to 148 this morning. Based on her weight and current serum sodium estimated free water deficit is about a liter and a half at this time but the patient appears to be volume resuscitated. Blood pressures in the 110s today. Patient had a good day yesterday talking interacting with staff and singing. I am seeing her just as she is woken up this morning and she is doing well. No discomfort. Responsive. Verbal but difficult to understand. - Patient Data Vitals - Most Recent: Last Vital Signs Temp 36.9 C 12/29/17 04:00 Pulse 88 12/29/17 04:00 Resp 20 12/29/17 04:00 BP 117/68 12/29/17 04:00 Pulse Ox 92 L 12/29/17 04:00 Weight - Most Recent: 51.795 kg I&O - Last 24 Hours: Intake & Output 12/28/17 12/29/17 12/29/17 22:59 06:59 14:59 Intake Total 840 30 Output Total 350 Balance 490 30 Lab Results Last 24 Hours: Laboratory Results - last 24 hr 12/29/17 12/29/17 Range/Units 07:20 07:20 WBC 7.5 (4.5-12.0) X10-3/uL RBC 4.43 (3.23-5.20) x10(6)uL Hgb 13.3 (11.5-15.5) g/dL Hct 39.8 (30.0-51.3) % MCV 89.8 (80-96) fL MCH 30.0 (27.7-33.6) pg MCHC 33.4 (32.2-35.4) g/dL RDW 14.0 (11.5-15.5) % Plt Count 112 L (125-369) X10(3)uL MPV 10.2 (7.4-10.4) fL Neut % (Auto) 67.6 (46-82) % Lymph % (Auto) 17.2 (13-37) % Walker % (Auto) 8.2 (4-12) % Eos % (Auto) 7 H (1.0-5.0) % Baso % (Auto) 1 (0-2) % Neut # (Auto) 5.1 (1.6-8.3) # Lymph # (Auto) 1.3 (0.6-5.0) # Walker # (Auto) 0.6 (0.0-1.3) # Eos # (Auto) 0.5 (0.0-0.8) # Baso # (Auto) 0.0 (0.0-0.2) # Sodium 148 H (135-145) mmol/L Potassium 3.4 L (3.5-5.3) mmol/L Chloride 116 H* D (100-110) mmol/L Carbon Dioxide 22 (21-32) mmol/L BUN 21 H (7-18) mg/dL Creatinine 1.0 (0.55-1.02) mg/dL Est Cr Clr Drug Dosing 32.77 mL/min Estimated GFR (MDRD) 53 L (>60) BUN/Creatinine Ratio 21.0 H (9-20) Glucose 93 (80-116) mg/dL Calcium 8.2 L (8.6-10.2) mg/dL Med Orders - Current: Current Medications Aspirin (Aspirin) 81 mg PO DAILY [facility] Last Admin: 12/28/17 09:37 Dose: 81 mg Dextrose/Water (Dextrose 5% In Water) 1,000 mls @ 50 mls/hr IV ASDIRECTED [facility] Stop: 12/30/17 04:29 Levetiracetam (Keppra) 500 mg PO [facility] Last Admin: 12/28/17 18:03 Dose: 500 mg Metoprolol Succinate (Toprol Xl) 12.5 mg PO DAILY [facility] Last Admin: 12/28/17 09:37 Dose: 12.5 mg Sodium Chloride (Saline Flush) 10 ml FLUSH ASDIRECTED PRN PRN Reason: Keep Vein Open Last Admin: 12/26/17 18:01 Dose: 10 ml Discontinued Medications Heparin Sodium (Porcine) (Heparin Sodium) 5,000 units SUBCUT Q12H [facility] Last Admin: 12/28/17 01:28 Dose: 5,000 units Sodium Chloride (Normal Saline) 1,000 mls @ 999 mls/hr IV .BOLUS ONE Stop: 12/26/17 18:25 Last Admin: 12/26/17 18:00 Dose: 999 mls/hr Sodium Chloride (Sodium Chloride 0.45%) 1,000 mls @ 999 mls/hr IV ASDIRECTED [facility] Last Admin: 12/26/17 19:04 Dose: 999 mls/hr Sodium Chloride (Sodium Chloride 0.45%) 1,000 mls @ 125 mls/hr IV ASDIRECTED [facility] Last Admin: 12/27/17 04:33 Dose: 125 mls/hr Levofloxacin/Dextrose 750 mg/ (Premix) 150 mls @ 100 mls/hr IV Q48H [facility] Last Admin: 12/27/17 09:35 Dose: 100 mls/hr Sodium Chloride (Normal Saline) 1,000 mls @ 100 mls/hr IV ASDIRECTED [facility] Last Admin: 12/28/17 05:53 Dose: 100 mls/hr Sodium Chloride (Sodium Chloride 0.45%) 1,000 mls @ 100 mls/hr IV ASDIRECTED [facility] Last Admin: 12/29/17 04:19 Dose: 100 mls/hr - Exam General: Alert, Cooperative, No Acute Distress HEENT: Pupils Equal, Pupils Reactive Neck: Supple Lungs: Clear to Auscultation, Normal Respiratory Effort Cardiovascular: Regular Rate, Regular Rhythm, No Murmurs GI/Abdominal Exam: Normal Bowel Sounds, Soft, Non-Tender, No Distention Extremities: No Pedal Edema Psy/Mental Status: Alert - Problem List & Annotations (1) Hypernatremia SNOMED Code(s): 28424091 Code(s): E87.0 - HYPEROSMOLALITY AND HYPERNATREMIA Status: Acute Current Visit: Yes Annotation/Comment:: Sodium 148. Calculated free water deficit is about 1-1/2 L. I am going to start her on D5W at 50 mL/h, recheck sodium in 8 hours. If normal at that time, will lock IV fluids and transfer out of ICU status. After echocardiogram, patient would likely be able to discharge home tomorrow. It will be important at the correction for patient to take adequate free water particularly given that she is on thickened liquids. (2) Pneumonia SNOMED Code(s): 856056872 Code(s): J18.9 - PNEUMONIA, UNSPECIFIED ORGANISM Status: Acute Current Visit: Yes Annotation/Comment:: Completed 5 days of levaquin. (3) Elevated troponin SNOMED Code(s): 021392410, 016764296, 867079933 Code(s): R74.8 - ABNORMAL LEVELS OF OTHER SERUM ENZYMES Status: Acute Current Visit: Yes Annotation/Comment:: Presumptive NSTEMI at some point in the recent past. Continue aspirin, beta nancy at low dose. Hypotension resolved. Consider addition of NELSON inhibitor in the future. (4) Seizure disorder, complex partial SNOMED Code(s): 176917663 Code(s): G40.209 - LOCAL-REL SYMPTC EPI W CMPLX PRT SEIZ,NOT NTRCT,W/O STAT EPI Status: Acute Current Visit: Yes Qualifiers: Epilepsy type: partial symptomatic Annotation/Comment:: Continue keppra at outpatient dose. (5) Acute kidney injury SNOMED Code(s): 47842278 Code(s): N17.9 - ACUTE KIDNEY FAILURE, UNSPECIFIED Status: Acute Current Visit: Yes Annotation/Comment:: Baseline creatinine 0.94 in 2017. Now at 1.0. Continue IVF as above. (6) Moderate mental retardation SNOMED Code(s): 502722357, 803065220 Code(s): F71 - MODERATE INTELLECTUAL DISABILITIES Status: Acute Current Visit: Yes Annotation/Comment:: Work with staff at [facility] to learn how to meet patient's psychosocial and physical needs. (7) DVT prophylaxis SNOMED Code(s): 446074822, 073458520 Code(s): AHQ7085 - Status: Acute Current Visit: Yes Annotation/Comment :: Start Lovenox today. Platelets are stable at 112. SCDs. - Problem List Review Problem List Initiated/Reviewed/Updated: Yes - My Orders Last 24 Hours: My Active Orders 12/29/17 08:30 Dextrose 5% in Water @ 50 MLS/HR(1000ml) Dextrose 5% in Water 1,000 ml IV ASDIRECTED 12/29/17 15:00 SODIUM,NA [CHEM] Timed 12/29/17 Breakfast Pureed Diet [DIET] 12/30/17 05:11 BASIC METABOLIC PANEL,BMP [CHEM] AM CBC WITH AUTO DIFF [HEME] AM 12/30/17 08:00 Echo Comp wo Cont [US] Routine - Plan Plan:: Code status discussed with brother Semaj. No CPR if patient gets so ill she dies - he would want her to be able to pass peacefully. Possibly intubation depending on the situation and if short term and reversible. Thus DNR/Yes Intubation with limits.
[2017-12-29] MEDS: levETIRAcetam 500 MG Tab PO SCH ×2 (09:00→19:10)
[2017-12-29] MEDS: Enoxaparin 30 MG/0.3 ML Syringe SUBCUT SCH (10:01)
[2017-12-30] MEDS: Dextrose 5% in Water 1,000 ML IV SCH (04:15)
[2017-12-30] MEDS: Aspirin 81 MG Tab.Chew PO SCH (09:05)
[2017-12-30] MEDS: Enoxaparin 30 MG/0.3 ML Syringe SUBCUT SCH (09:05)
[2017-12-30] MEDS: Metoprolol Succinate 25 MG Tab.ER PO SCH (09:06)
[2017-12-30] MEDS: levETIRAcetam 500 MG Tab PO SCH ×2 (09:08→18:19)
[2017-12-30] MEDS ORDERED: Furosemide 40 MG/4 ML VIAL IVPUSH SCH (09:15)
--- NOTE | 2017-12-30 09:23 | PCM.PN ---
- General Info Date of Service: 12/30/17 Subjective Update: Cecelia did well overnight however she needs oxygen to keep saturations up. She' s also noted to be puffy and wheezing. No fevers been reported. - Review of Systems Genitourinary: Reports: No Symptoms Musculoskeletal: Reports: No Symptoms - Patient Data Vitals - Most Recent: Last Vital Signs Temp 99.8 F 12/30/17 03:51 Pulse 83 12/30/17 09:06 Resp 21 H 12/30/17 03:51 BP 149/76 H 12/30/17 09:06 Pulse Ox 85 L 12/30/17 03:51 Weight - Most Recent: 56.019 kg I&O - Last 24 Hours: Intake & Output 12/29/17 12/30/17 12/30/17 22:59 06:59 14:59 Intake Total 393 500 Output Total 822 350 Balance -429 150 Lab Results Last 24 Hours: Laboratory Results - last 24 hr 12/29/17 12/30/17 12/30/17 Range/Units 15:03 06:15 06:15 WBC 8.5 (4.5-12.0) X10-3/uL RBC 4.22 (3.23-5.20) x10(6)uL Hgb 12.6 (11.5-15.5) g/dL Hct 38.0 (30.0-51.3) % MCV 89.9 (80-96) fL MCH 29.9 (27.7-33.6) pg MCHC 33.2 (32.2-35.4) g/dL RDW 14.2 (11.5-15.5) % Plt Count 119 L (125-369) X10(3)uL MPV 10.7 H (7.4-10.4) fL Neut % (Auto) 70.8 (46-82) % Lymph % (Auto) 14.6 (13-37) % Beadle % (Auto) 9.0 (4-12) % Eos % (Auto) 5 (1.0-5.0) % Baso % (Auto) 0 (0-2) % Neut # (Auto) 6.1 (1.6-8.3) # Lymph # (Auto) 1.2 (0.6-5.0) # Beadle # (Auto) 0.8 (0.0-1.3) # Eos # (Auto) 0.4 (0.0-0.8) # Baso # (Auto) 0.0 (0.0-0.2) # Sodium 147 H 145 (135-145) mmol/L Potassium 3.4 L (3.5-5.3) mmol/L Chloride 112 H (100-110) mmol/L Carbon Dioxide 22 (21-32) mmol/L BUN 16 (7-18) mg/dL Creatinine 0.9 (0.55-1.02) mg/dL Est Cr Clr Drug Dosing 36.41 mL/min Estimated GFR (MDRD) > 60 (>60) BUN/Creatinine Ratio 17.8 (9-20) Glucose 96 (80-116) mg/dL Calcium 8.2 L (8.6-10.2) mg/dL Med Orders - Current: Current Medications Aspirin (Aspirin) 81 mg PO DAILY [facility] Last Admin: 12/30/17 09:05 Dose: 81 mg Enoxaparin Sodium (Lovenox) 30 mg SUBCUT Q24H [facility] Last Admin: 12/30/17 09:05 Dose: 30 mg Furosemide (Lasix) 40 mg IVPUSH DAILY [facility] Levetiracetam (Keppra) 500 mg PO 18 [facility] Last Admin: 12/30/17 09:08 Dose: 500 mg Sodium Chloride (Saline Flush) 10 ml FLUSH ASDIRECTED PRN PRN Reason: Keep Vein Open Last Admin: 12/26/17 18:01 Dose: 10 ml Discontinued Medications Heparin Sodium (Porcine) (Heparin Sodium) 5,000 units SUBCUT Q12H [facility] Last Admin: 12/28/17 01:28 Dose: 5,000 units Sodium Chloride (Normal Saline) 1,000 mls @ 999 mls/hr IV .BOLUS ONE Stop: 12/26/17 18:25 Last Admin: 12/26/17 18:00 Dose: 999 mls/hr Sodium Chloride (Sodium Chloride 0.45%) 1,000 mls @ 999 mls/hr IV ASDIRECTED [facility] Last Admin: 12/26/17 19:04 Dose: 999 mls/hr Sodium Chloride (Sodium Chloride 0.45%) 1,000 mls @ 125 mls/hr IV ASDIRECTED [facility] Last Admin: 12/27/17 04:33 Dose: 125 mls/hr Levofloxacin/Dextrose 750 mg/ (Premix) 150 mls @ 100 mls/hr IV Q48H [facility] Last Admin: 12/27/17 09:35 Dose: 100 mls/hr Sodium Chloride (Normal Saline) 1,000 mls @ 100 mls/hr IV ASDIRECTED [facility] Last Admin: 12/28/17 05:53 Dose: 100 mls/hr Sodium Chloride (Sodium Chloride 0.45%) 1,000 mls @ 100 mls/hr IV ASDIRECTED [facility] Last Admin: 12/29/17 04:19 Dose: 100 mls/hr Dextrose/Water (Dextrose 5% In Water) 1,000 mls @ 50 mls/hr IV ASDIRECTED [facility] Stop: 12/31/17 04:29 Last Admin: 12/30/17 04:15 Dose: 50 mls/hr Metoprolol Succinate (Toprol Xl) 12.5 mg PO DAILY [facility] Last Admin: 12/30/17 09:06 Dose: 12.5 mg - Exam Quality Assessment: Supplemental Oxygen General: Lethargic HEENT: Pupils Equal Neck: Supple Lungs: Crackles, Rhonchi Cardiovascular: Regular Rate - Problem List & Annotations (1) CHF (congestive heart failure) SNOMED Code(s): 05783516 Code(s): I50.9 - HEART FAILURE, UNSPECIFIED Status: Acute Current Visit: Yes (2) Elevated troponin SNOMED Code(s): 419785192, 983381922, 918684133 Code(s): R74.8 - ABNORMAL LEVELS OF OTHER SERUM ENZYMES Status: Acute Current Visit: Yes Annotation/Comment:: Presumptive NSTEMI at some point in the recent past. Continue aspirin, beta nancy at low dose. Hypotension resolved. Consider addition of NELSON inhibitor in the future. (3) Hypernatremia SNOMED Code(s): 58716524 Code(s): E87.0 - HYPEROSMOLALITY AND HYPERNATREMIA Status: Acute Current Visit: Yes (4) Moderate mental retardation SNOMED Code(s): 659452513, 920725388 Code(s): F71 - MODERATE INTELLECTUAL DISABILITIES Status: Acute Current Visit: Yes Annotation/Comment:: Work with staff at [facility] to learn how to meet patient's psychosocial and physical needs. (5) Seizure disorder, complex partial SNOMED Code(s): 532954058 Code(s): G40.209 - LOCAL-REL SYMPTC EPI W CMPLX PRT SEIZ,NOT NTRCT,W/O STAT EPI Status: Acute Current Visit: Yes Qualifiers: Epilepsy type: partial symptomatic Annotation/Comment:: Continue keppra at outpatient dose. - Problem List Review Problem List Initiated/Reviewed/Updated: Yes - My Orders Last 24 Hours: My Active Orders 12/30/17 09:15 Patient Status Manage Transfer [TRANSFER] Routine Furosemide [Lasix] 40 mg IVPUSH DAILY 12/31/17 05:11 BASIC METABOLIC PANEL,BMP [CHEM] AM PRO B-TYPE NATRIUR PEPT,BNPPRO [CHEM] DAILY TROPONIN I [CHEM] AM - Plan Plan:: I will transfer the patient out of ICU. I ordered Lasix 40 mg IV and discontinued D5 water. She has an echocardiogram later today. I will repeat some blood work in the morning and continue oxygen supplementation by nasal cannula.
[2017-12-30] MEDS: Sodium Chloride 0.9% 10 ML Syringe FLUSH PRN (09:30)
--- NOTE | 2017-12-30 11:12 | CR ---
INDICATION: Choking. SWALLOWING FUNCTION WITH VIDEO: 3 minutes 46 seconds video fluoroscopy time with DVD recording and various barium-tinged meals - fluids - were utilized in evaluating the swallowing mechanism. On the initial swallow with thin liquids, there was penetration which was a significant degree of penetration, but without aspiration. No aspiration occurred with the thin liquids or with the remainder of the honey and nectar thicknesses. Subsequent thin liquids did not penetrate significantly. Examination was compared with the previous examination of 06/10/2015, at which time there was a normal swallowing mechanism noted. Toward the end of the examination with thin liquids, there was spillage noted with significant retention in the valleculae and piriform sinuses until the swallowing mechanism could be initiated by placing a spoon in the oral cavity. [facility]
--- NOTE | 2017-12-31 08:24 | PCM.PN ---
- General Info Date of Service: 12/31/17 Admission Dx/Problem (Free Text): Admission Diagnosis/Problem Admission Diagnosis/Problem Hypernatremia Subjective Update: Patient is down on oxygen needed up to 2 L now. Should swallow eval yesterday that showed spillage of thin liquids. She also had an echocardiogram that showed severe pulmonary hypertension and right ventricular dysfunction- systolic. No fevers been reported. She still puffy, and it's difficult to obtain her weight. She is also incontinent of urine. - Review of Systems Gastrointestinal: Reports: No Symptoms Genitourinary: Reports: No Symptoms - Patient Data Vitals - Most Recent: Last Vital Signs Temp 98.1 F 12/31/17 07:35 Pulse 78 12/31/17 07:35 Resp 20 12/31/17 07:35 BP 98/53 L 12/31/17 07:35 Pulse Ox 93 L 12/31/17 07:35 Weight - Most Recent: 51.573 kg I&O - Last 24 Hours: Intake & Output 12/30/17 12/31/17 12/31/17 22:59 06:59 14:59 Intake Total 220 120 Balance 220 120 Lab Results Last 24 Hours: Laboratory Results - last 24 hr 12/31/17 12/31/17 Range/Units 06:00 06:00 Sodium 146 H (135-145) mmol/L Potassium 4.1 (3.5-5.3) mmol/L Chloride 111 H (100-110) mmol/L Carbon Dioxide 26 (21-32) mmol/L BUN 16 (7-18) mg/dL Creatinine 0.9 (0.55-1.02) mg/dL Est Cr Clr Drug Dosing 36.41 mL/min Estimated GFR (MDRD) > 60 (>60) BUN/Creatinine Ratio 17.8 (9-20) Glucose 90 (80-116) mg/dL Calcium 8.4 L (8.6-10.2) mg/dL Troponin I 0.037 (<0.017-0.056) ng/mL NT-Pro-B Natriuret Pep 46993 H* (<=450) pg/mL Med Orders - Current: Current Medications Aspirin (Aspirin) 81 mg PO DAILY [facility] Last Admin: 12/30/17 09:05 Dose: 81 mg Enoxaparin Sodium (Lovenox) 30 mg SUBCUT Q24H [facility] [place] Last Admin: 12/30/17 09:05 Dose: 30 mg Furosemide (Lasix) 40 mg IVPUSH BID [facility] Levetiracetam (Keppra) 500 mg PO [facility] Last Admin: 12/30/17 18:19 Dose: 500 mg Sodium Chloride (Saline Flush) 10 ml FLUSH ASDIRECTED PRN PRN Reason: Keep Vein Open Last Admin: 12/30/17 09:30 Dose: 10 ml Discontinued Medications Furosemide (Lasix) 40 mg IVPUSH DAILY [facility] [place] Last Admin: 12/30/17 09:30 Dose: 40 mg Heparin Sodium (Porcine) (Heparin Sodium) 5,000 units SUBCUT Q12H [facility] [place] Last Admin: 12/28/17 01:28 Dose: 5,000 units Sodium Chloride (Normal Saline) 1,000 mls @ 999 mls/hr IV .BOLUS ONE Stop: 12/26/17 18:25 Last Admin: 12/26/17 18:00 Dose: 999 mls/hr Sodium Chloride (Sodium Chloride 0.45%) 1,000 mls @ 999 mls/hr IV ASDIRECTED [facility] [place] Last Admin: 12/26/17 19:04 Dose: 999 mls/hr Sodium Chloride (Sodium Chloride 0.45%) 1,000 mls @ 125 mls/hr IV ASDIRECTED [facility] [place] Last Admin: 12/27/17 04:33 Dose: 125 mls/hr Levofloxacin/Dextrose 750 mg/ (Premix) 150 mls @ 100 mls/hr IV Q48H [facility] [place] Last Admin: 12/27/17 09:35 Dose: 100 mls/hr Sodium Chloride (Normal Saline) 1,000 mls @ 100 mls/hr IV ASDIRECTED [facility] [place] Last Admin: 12/28/17 05:53 Dose: 100 mls/hr Sodium Chloride (Sodium Chloride 0.45%) 1,000 mls @ 100 mls/hr IV ASDIRECTED [facility] Last Admin: 12/29/17 04:19 Dose: 100 mls/hr Dextrose/Water (Dextrose 5% In Water) 1,000 mls @ 50 mls/hr IV ASDIRECTED [facility] Stop: 12/31/17 04:29 Last Admin: 12/30/17 04:15 Dose: 50 mls/hr Metoprolol Succinate (Toprol Xl) 12.5 mg PO DAILY [facility] [place] Last Admin: 12/30/17 09:06 Dose: 12.5 mg - Exam Quality Assessment: Supplemental Oxygen General: Alert HEENT: Pupils Equal Lungs: Wheezing Cardiovascular: Regular Rate, Murmurs - Problem List & Annotations (1) CHF (congestive heart failure) SNOMED Code(s): 91797683 Code(s): I50.9 - HEART FAILURE, UNSPECIFIED Status: Acute Current Visit: Yes Qualifiers: Heart failure type: right-sided (2) Elevated troponin SNOMED Code(s): 116722430, 599442016, 027138132 Code(s): R74.8 - ABNORMAL LEVELS OF OTHER SERUM ENZYMES Status: Acute Current Visit: Yes Annotation/Comment:: Presumptive NSTEMI at some point in the recent past. Continue aspirin, beta nancy at low dose. Hypotension resolved. Consider addition of NELSON inhibitor in the future. (3) Hypernatremia SNOMED Code(s): 53478724 Code(s): E87.0 - HYPEROSMOLALITY AND HYPERNATREMIA Status: Acute Current Visit: Yes (4) Moderate mental retardation SNOMED Code(s): 686564825, 984970311 Code(s): F71 - MODERATE INTELLECTUAL DISABILITIES Status: Acute Current Visit: Yes Annotation/Comment:: Work with staff at [facility] to learn how to meet patient's psychosocial and physical needs. (5) Seizure disorder, complex partial SNOMED Code(s): 958525667 Code(s): G40.209 - LOCAL-REL SYMPTC EPI W CMPLX PRT SEIZ,NOT NTRCT,W/O STAT EPI Status: Acute Current Visit: Yes Qualifiers: Epilepsy type: partial symptomatic Annotation/Comment:: Continue keppra at outpatient dose. (6) Pulmonary hypertension SNOMED Code(s): 03545902 Code(s): I27.20 - PULMONARY HYPERTENSION, UNSPECIFIED Status: Acute Current Visit: Yes - Problem List Review Problem List Initiated/Reviewed/Updated: Yes - My Orders Last 24 Hours: My Active Orders 12/31/17 09:00 Furosemide [Lasix] 40 mg IVPUSH BID 01/01/18 05:11 BASIC METABOLIC PANEL,BMP [CHEM] AM CBC WITH AUTO DIFF [HEME] AM 01/01/18 06:00 PRO B-TYPE NATRIUR PEPT,BNPPRO [CHEM] DAILY - Plan Plan:: I appreciate the speech evaluation, and recommend the honey thickened pured diet is recommended. I've increased Lasix to 40 g twice a day strict input and output and daily weight is recommended. I will repeat basic profile in the morning and BNP, because today the BNP had gone up to 12,000. Echocardiogram did show some right-sided systolic dysfunction of the right ventricle and severe pulmonary hypertension.
[2017-12-31] MEDS: Aspirin 81 MG Tab.Chew PO SCH (08:48)
[2017-12-31] MEDS: Furosemide 40 MG/4 ML VIAL IVPUSH SCH ×2 (08:56→13:41)
[2017-12-31] MEDS: Enoxaparin 30 MG/0.3 ML Syringe SUBCUT SCH (08:58)
[2017-12-31] MEDS: Sodium Chloride 0.9% 10 ML Syringe FLUSH PRN ×3 (09:04→13:40)
[2017-12-31] MEDS: levETIRAcetam 500 MG Tab PO SCH ×2 (09:48→18:24)
--- NOTE | 2018-01-01 09:13 | PCM.PN ---
- General Info Date of Service: 01/01/18 Subjective Update: Patient still needs oxygen. The POA and the nursing staff is also concerned about of being too sleepy. His been no report of any fever. Her blood pressure has been slightly lower than usual. - Review of Systems General: Reports: No Symptoms Pulmonary: Reports: Cough Cardiovascular: Reports: Edema Gastrointestinal: Reports: No Symptoms Genitourinary: Reports: No Symptoms - Patient Data Vitals - Most Recent: Last Vital Signs Temp 98.1 F 01/01/18 07:40 Pulse 117 H 01/01/18 07:40 Resp 12 01/01/18 07:40 BP 108/62 01/01/18 07:40 Pulse Ox 89 L 01/01/18 07:40 Weight - Most Recent: 48.398 kg I&O - Last 24 Hours: Intake & Output 12/31/17 01/01/18 01/01/18 22:59 06:59 14:59 Intake Total 240 50 Output Total 750 300 Balance -750 -60 50 Lab Results Last 24 Hours: Laboratory Results - last 24 hr 01/01/18 01/01/18 01/01/18 Range/Units 06:10 06:10 06:10 WBC 12.6 H (4.5-12.0) X10-3/uL RBC 4.59 (3.23-5.20) x10(6)uL Hgb 13.7 (11.5-15.5) g/dL Hct 40.7 (30.0-51.3) % MCV 88.8 (80-96) fL MCH 29.7 (27.7-33.6) pg MCHC 33.5 (32.2-35.4) g/dL RDW 14.0 (11.5-15.5) % Plt Count 142 (125-369) X10(3)uL MPV 9.8 (7.4-10.4) fL Neut % (Auto) 74.6 (46-82) % Lymph % (Auto) 13.3 (13-37) % [place] % (Auto) 10.5 (4-12) % Eos % (Auto) 1 (1.0-5.0) % Baso % (Auto) 0 (0-2) % Neut # (Auto) 9.3 H (1.6-8.3) # Lymph # (Auto) 1.7 (0.6-5.0) # [place] # (Auto) 1.3 (0.0-1.3) # Eos # (Auto) 0.2 (0.0-0.8) # Baso # (Auto) 0.1 (0.0-0.2) # Sodium 145 (135-145) mmol/L Potassium 3.7 (3.5-5.3) mmol/L Chloride 107 (100-110) mmol/L Carbon Dioxide 28 (21-32) mmol/L BUN 18 (7-18) mg/dL Creatinine 0.9 (0.55-1.02) mg/dL Est Cr Clr Drug Dosing 36.41 mL/min Estimated GFR (MDRD) > 60 (>60) BUN/Creatinine Ratio 20.0 (9-20) Glucose 124 H (80-116) mg/dL Calcium 8.9 (8.6-10.2) mg/dL NT-Pro-B Natriuret Pep 9701 H* (<=450) pg/mL Med Orders - Current: Current Medications Aspirin (Aspirin) 81 mg PO DAILY [facility] Last Admin: 12/31/17 08:48 Dose: 81 mg Enoxaparin Sodium (Lovenox) 30 mg SUBCUT Q24H [facility] Last Admin: 12/31/17 08:58 Dose: 30 mg Furosemide (Lasix) 40 mg IVPUSH BIDDIURETIC [facility] Last Admin: 12/31/17 13:41 Dose: 40 mg Levetiracetam (Keppra) 500 mg PO 10,18 [facility] Last Admin: 12/31/17 18:24 Dose: 500 mg Sodium Chloride (Saline Flush) 10 ml FLUSH ASDIRECTED PRN PRN Reason: Keep Vein Open Last Admin: 12/31/17 13:40 Dose: 10 ml Discontinued Medications Furosemide (Lasix) 40 mg IVPUSH DAILY [facility] Last Admin: 12/30/17 09:30 Dose: 40 mg Heparin Sodium (Porcine) (Heparin Sodium) 5,000 units SUBCUT Q12H [facility] Last Admin: 12/28/17 01:28 Dose: 5,000 units Sodium Chloride (Normal Saline) 1,000 mls @ 999 mls/hr IV .BOLUS ONE Stop: 12/26/17 18:25 Last Admin: 12/26/17 18:00 Dose: 999 mls/hr Sodium Chloride (Sodium Chloride 0.45%) 1,000 mls @ 999 mls/hr IV ASDIRECTED [facility] Last Admin: 12/26/17 19:04 Dose: 999 mls/hr Sodium Chloride (Sodium Chloride 0.45%) 1,000 mls @ 125 mls/hr IV ASDIRECTED [facility] Last Admin: 12/27/17 04:33 Dose: 125 mls/hr Levofloxacin/Dextrose 750 mg/ (Premix) 150 mls @ 100 mls/hr IV Q48H [facility] Last Admin: 12/27/17 09:35 Dose: 100 mls/hr Sodium Chloride (Normal Saline) 1,000 mls @ 100 mls/hr IV ASDIRECTED [facility] Last Admin: 12/28/17 05:53 Dose: 100 mls/hr Sodium Chloride (Sodium Chloride 0.45%) 1,000 mls @ 100 mls/hr IV ASDIRECTED [facility] Last Admin: 12/29/17 04:19 Dose: 100 mls/hr Dextrose/Water (Dextrose 5% In Water) 1,000 mls @ 50 mls/hr IV ASDIRECTED [facility] Stop: 12/31/17 04:29 Last Admin: 12/30/17 04:15 Dose: 50 mls/hr Metoprolol Succinate (Toprol Xl) 12.5 mg PO DAILY [facility] Last Admin: 12/30/17 09:06 Dose: 12.5 mg - Exam Quality Assessment: Supplemental Oxygen General: Lethargic HEENT: Pupils Equal Neck: Supple Lungs: Crackles Cardiovascular: Murmurs - Problem List & Annotations (1) CHF (congestive heart failure) SNOMED Code(s): 85672688 Code(s): I50.9 - HEART FAILURE, UNSPECIFIED Status: Acute Current Visit: Yes Qualifiers: Heart failure type: right-sided (2) Elevated troponin SNOMED Code(s): 088078814, 304063371, 086319192 Code(s): R74.8 - ABNORMAL LEVELS OF OTHER SERUM ENZYMES Status: Acute Current Visit: Yes (3) Hypernatremia SNOMED Code(s): 25731059 Code(s): E87.0 - HYPEROSMOLALITY AND HYPERNATREMIA Status: Acute Current Visit: Yes (4) Moderate mental retardation SNOMED Code(s): 833092997, 886755091 Code(s): F71 - MODERATE INTELLECTUAL DISABILITIES Status: Acute Current Visit: Yes Annotation/Comment:: Work with staff at [facility] to learn how to meet patient's psychosocial and physical needs. (5) Seizure disorder, complex partial SNOMED Code(s): 432264478 Code(s): G40.209 - LOCAL-REL SYMPTC EPI W CMPLX PRT SEIZ,NOT NTRCT,W/O STAT EPI Status: Acute Current Visit: Yes Qualifiers: Epilepsy type: partial symptomatic Annotation/Comment:: Continue keppra at outpatient dose. (6) Pulmonary hypertension SNOMED Code(s): 93162144 Code(s): I27.20 - PULMONARY HYPERTENSION, UNSPECIFIED Status: Acute Current Visit: Yes (7) Cough SNOMED Code(s): 98070256 Code(s): R05 - COUGH Status: Acute Current Visit: Yes - Problem List Review Problem List Initiated/Reviewed/Updated: Yes - My Orders Last 24 Hours: My Active Orders 12/31/17 09:00 Furosemide [Lasix] 40 mg IVPUSH BIDDIURETIC 01/01/18 09:07 CXR [Chest 2V] [CR] Routine 01/02/18 05:11 BASIC METABOLIC PANEL,BMP [CHEM] AM CBC WITH AUTO DIFF [HEME] AM PRO B-TYPE NATRIUR PEPT,BNPPRO [CHEM] DAILY TROPONIN I [CHEM] AM - Plan Plan:: Due to the fact of a cough, and continued need of oxygenation, I will obtain a chest x-ray today. I will reduce the Lasix dose to 20 mg IV BID due to low BP.A Keppra level is ordered due to the lethargy.
[2018-01-01] MEDS: Aspirin 81 MG Tab.Chew PO SCH (09:25)
[2018-01-01] MEDS: Enoxaparin 30 MG/0.3 ML Syringe SUBCUT SCH (09:25)
[2018-01-01] MEDS: Sodium Chloride 0.9% 10 ML Syringe FLUSH PRN ×2 (09:25→14:43)
[2018-01-01] MEDS: Furosemide 40 MG/4 ML VIAL IVPUSH SCH (09:25)
[2018-01-01] MEDS: levETIRAcetam 500 MG Tab PO SCH ×2 (09:26→18:27)
[2018-01-01] MEDS ORDERED: Furosemide 20 MG/2 ML VIAL IVPUSH SCH (14:00)
[2018-01-01] MEDS: Furosemide 20 MG/2 ML VIAL IVPUSH SCH (14:44)
[2018-01-02] MEDS: Furosemide 20 MG/2 ML VIAL IVPUSH SCH ×2 (08:23→13:55)
[2018-01-02] MEDS: Sodium Chloride 0.9% 10 ML Syringe FLUSH PRN (08:27)
[2018-01-02] MEDS: Enoxaparin 30 MG/0.3 ML Syringe SUBCUT SCH (08:29)
[2018-01-02] MEDS: levETIRAcetam 500 MG Tab PO SCH (09:05)
[2018-01-02] MEDS: Aspirin 81 MG Tab.Chew PO SCH (09:05)
--- NOTE | 2018-01-02 10:00 | PCM.PN ---
- General Info Date of Service: 01/02/18 Subjective Update: Patient still needs oxygen. Her blood pressure has been slightly lower than usual.No report of fever.Still choking on pureed food. - Review of Systems HEENT: Reports: No Symptoms Pulmonary: Reports: Cough Genitourinary: Reports: No Symptoms - Patient Data Vitals - Most Recent: Last Vital Signs Temp 99.2 F 01/01/18 19:40 Pulse 108 H 01/01/18 19:40 Resp 21 H 01/01/18 19:40 BP 121/74 01/01/18 19:40 Pulse Ox 92 L 01/01/18 19:40 Weight - Most Recent: 48.398 kg I&O - Last 24 Hours: Intake & Output 01/01/18 01/02/18 01/02/18 22:59 06:59 14:59 Intake Total 120 Output Total 0 Balance 120 Lab Results Last 24 Hours: Laboratory Results - last 24 hr 01/02/18 01/02/18 01/02/18 Range/Units 06:21 06:21 06:21 WBC 11.9 (4.5-12.0) X10-3/uL RBC 4.42 (3.23-5.20) x10(6)uL Hgb 13.4 (11.5-15.5) g/dL Hct 39.4 (30.0-51.3) % MCV 89.1 (80-96) fL MCH 30.3 (27.7-33.6) pg MCHC 34.0 (32.2-35.4) g/dL RDW 14.4 (11.5-15.5) % Plt Count 184 (125-369) X10(3)uL MPV 10.1 (7.4-10.4) fL Add Manual Diff Yes Neutrophils % (Manual) 75 (46-82) % Band Neutrophils % 1 (0-6) % Lymphocytes % (Manual) 19 (13-37) % Monocytes % (Manual) 5 (4-12) % Sodium 145 (135-145) mmol/L Potassium 3.8 (3.5-5.3) mmol/L Chloride 105 (100-110) mmol/L Carbon Dioxide 31 (21-32) mmol/L BUN 29 H D (7-18) mg/dL Creatinine 1.2 H (0.55-1.02) mg/dL Est Cr Clr Drug Dosing 27.30 mL/min Estimated GFR (MDRD) 43 L (>60) BUN/Creatinine Ratio 24.2 H (9-20) Glucose 129 H (80-116) mg/dL Calcium 9.0 (8.6-10.2) mg/dL Troponin I 0.018 (<0.017-0.056) ng/mL NT-Pro-B Natriuret Pep 7416 H* (<=450) pg/mL Med Orders - Current: Current Medications Aspirin (Aspirin) 81 mg PO DAILY [facility] Last Admin: 01/02/18 09:05 Dose: 81 mg Enoxaparin Sodium (Lovenox) 30 mg SUBCUT Q24H [facility] Last Admin: 01/02/18 08:29 Dose: 30 mg Furosemide (Lasix) 20 mg IVPUSH BIDDIURETIC [facility] Last Admin: 01/02/18 08:23 Dose: 20 mg Levetiracetam (Keppra) 500 mg PO [facility] Last Admin: 01/02/18 09:05 Dose: 500 mg Sodium Chloride (Saline Flush) 10 ml FLUSH ASDIRECTED PRN PRN Reason: Keep Vein Open Last Admin: 01/02/18 08:27 Dose: 10 ml Discontinued Medications Furosemide (Lasix) 40 mg IVPUSH DAILY [facility] Last Admin: 12/30/17 09:30 Dose: 40 mg Furosemide (Lasix) 40 mg IVPUSH BIDDIURETIC [facility] Last Admin: 01/01/18 09:25 Dose: 40 mg Furosemide (Lasix) 20 mg IVPUSH BIDDIURETIC [facility] Heparin Sodium (Porcine) (Heparin Sodium) 5,000 units SUBCUT Q12H [facility] Last Admin: 12/28/17 01:28 Dose: 5,000 units Sodium Chloride (Normal Saline) 1,000 mls @ 999 mls/hr IV .BOLUS ONE Stop: 12/26/17 18:25 Last Admin: 12/26/17 18:00 Dose: 999 mls/hr Sodium Chloride (Sodium Chloride 0.45%) 1,000 mls @ 999 mls/hr IV ASDIRECTED [facility] Last Admin: 12/26/17 19:04 Dose: 999 mls/hr Sodium Chloride (Sodium Chloride 0.45%) 1,000 mls @ 125 mls/hr IV ASDIRECTED [facility] Last Admin: 12/27/17 04:33 Dose: 125 mls/hr Levofloxacin/Dextrose 750 mg/ (Premix) 150 mls @ 100 mls/hr IV Q48H [facility] Last Admin: 12/27/17 09:35 Dose: 100 mls/hr Sodium Chloride (Normal Saline) 1,000 mls @ 100 mls/hr IV ASDIRECTED [facility] Last Admin: 12/28/17 05:53 Dose: 100 mls/hr Sodium Chloride (Sodium Chloride 0.45%) 1,000 mls @ 100 mls/hr IV ASDIRECTED [facility] Last Admin: 12/29/17 04:19 Dose: 100 mls/hr Dextrose/Water (Dextrose 5% In Water) 1,000 mls @ 50 mls/hr IV ASDIRECTED [facility] Stop: 12/31/17 04:29 Last Admin: 12/30/17 04:15 Dose: 50 mls/hr Metoprolol Succinate (Toprol Xl) 12.5 mg PO DAILY [facility] Last Admin: 12/30/17 09:06 Dose: 12.5 mg - Exam Quality Assessment: Supplemental Oxygen General: No Acute Distress HEENT: Pupils Equal Lungs: Decreased Breath Sounds, Rales Cardiovascular: Murmurs Extremities: No: Pedal Edema Skin: Warm Neurological: No New Focal Deficit - Problem List & Annotations (1) CHF (congestive heart failure) SNOMED Code(s): 87567557 Code(s): I50.9 - HEART FAILURE, UNSPECIFIED Status: Acute Current Visit: Yes Qualifiers: Heart failure type: right-sided (2) Elevated troponin SNOMED Code(s): 476784785, 151736924, 848223037 Code(s): R74.8 - ABNORMAL LEVELS OF OTHER SERUM ENZYMES Status: Acute Current Visit: Yes (3) Hypernatremia SNOMED Code(s): 32235991 Code(s): E87.0 - HYPEROSMOLALITY AND HYPERNATREMIA Status: Acute Current Visit: Yes (4) Moderate mental retardation SNOMED Code(s): 637518000, 917560712 Code(s): F71 - MODERATE INTELLECTUAL DISABILITIES Status: Acute Current Visit: Yes Annotation/Comment:: Work with staff at senior living to learn how to meet patient's psychosocial and physical needs. (5) Seizure disorder, complex partial SNOMED Code(s): 853583398 Code(s): G40.209 - LOCAL-REL SYMPTC EPI W CMPLX PRT SEIZ,NOT NTRCT,W/O STAT EPI Status: Acute Current Visit: Yes Qualifiers: Epilepsy type: partial symptomatic Annotation/Comment:: Continue keppra at outpatient dose. (6) Pulmonary hypertension SNOMED Code(s): 56891944 Code(s): I27.20 - PULMONARY HYPERTENSION, UNSPECIFIED Status: Acute Current Visit: Yes (7) Cough SNOMED Code(s): 86895352 Code(s): R05 - COUGH Status: Acute Current Visit: Yes (8) Dysphagia SNOMED Code(s): 98189736, 806695476 Code(s): R13.10 - DYSPHAGIA, UNSPECIFIED Status: Acute Current Visit: Yes - Problem List Review Problem List Initiated/Reviewed/Updated: Yes - My Orders Last 24 Hours: My Active Orders 01/01/18 09:07 Chest 1V Frontal [CR] Routine 01/01/18 14:00 Furosemide [Lasix] 20 mg IVPUSH BIDDIURETIC - Plan Plan:: Chest x-ray showed pulmonary edema. She is diuresed well, that she is ready to go home with home oxygenation. I will discharge her today back to the senior living.
--- NOTE | 2018-01-03 05:57 | DISCH ---
DISCHARGE DATE: 01/02/2018 REASONS FOR ADMISSION: 1. Hypernatremia secondary to dehydration. 2. Elevated troponin. 3. Moderate mental retardation. 4. Acute kidney injury. 5. History of seizure disorder. 6. Pneumonia. DISCHARGE DIAGNOSES: 1. Hypernatremia, resolved. 2. Pulmonary edema. 3. Pulmonary hypertension. 4. Seizure disorder, stable. 5. Acute kidney injury, stable, resolved. 6. Moderate mental retardation, stable. 7. Dysphagia. CONSULTATIONS: 1. Speech evaluation for video swallow study. 2. Echocardiogram on 12/23/2017. BRIEF HISTORY AND HOSPITAL COURSE: This is a 77-year-old mentally handicapped female, who has a history of partial epilepsy. She presented to the ER with lethargy, and found to have a white cell count of 17,000, low blood pressure, and a sodium of 166. She was admitted for dehydration and hypernatremia, and was given D5 water for hydration. Over the next couple of days, sodium improved. However, she went into overload the day after I took over. This fluid was discontinued and Lasix was given. An echocardiogram revealed severe right ventricular dysfunction and pulmonary hypertension. A repeat chest x-ray that was done on 01/01/2018 revealed mild pulmonary edema. Lasix was given initially at 40 mg IV b.i.d., and later before discharge, 20 mg IV b.i.d. She will be discharged on 20 mg orally b.i.d. Her sodium improved and her creatinine leveled off at 1.1. Speech evaluation revealed that she was unable to swallow well and there was spillage, and the Speech therapist recommended nectar pureed diet. Antibiotics were stopped two days after discharge because no evidence of pneumonia was found. DISCHARGE MEDICATIONS: She will be discharged on 1. Lasix 20 mg b.i.d. 2. Keppra. 3. Aspirin. DISCHARGE FOLLOWUP: Followup will be arranged within a week of discharge. I spent more than 35 minutes in the discharge of the patient. /[id number] ZAY/ELLEN
--- NOTE | 2018-01-09 13:49 | PCM.SN ---
- Free Text/Narrative Note: I received a call from the patient's brother, Semaj, regarding our previous conversation about code status and end-of-life decision making. He has felt pressed by the [facility] to avoid re-hospitalization and consult hospice for end of life cares. He isn't sure this is what he wants to do. Discussed hospice, keeping patients in their home environment, whether or not the patient may not be safe to eat due to aspiration, considering if she would need to move to a higher level of care without hospice, and discussed the previous CODE STATUS discussion we had which reflected a DNR/ANNABEL code status. Questions answered to his satisfaction. He will follow up with the [facility] staff. Opal Rachel MD 01/09/18 [id number]
== END 2018-01-02 14:34 | disposition home health service (06) | DRG 641 ==
LOC: FB.ED 17:02 → FB.ICU 18:23 → UNDOADMIN 18:59 → FB.ICU 18:59 → FB.MS 12-30 09:15 → FB.ICU 12-30 09:15 → FB.MS 12-30 09:16 → UNDODISIN 01-02 14:34
PROVIDERS: ADMIT Emergency Medicine; ATTEND Family Medicine
DX: E87.0 Hyperosmolality and hypernatremia (principal); G40.209 Localization-related (focal) (partial) symptomatic epilepsy and epileptic syndromes with complex partial seizures, not intractable, without status epilepticus; N17.9 Acute kidney failure, unspecified; G91.9 Hydrocephalus, unspecified; E86.0 Dehydration; Z87.820 Personal history of traumatic brain injury; F71 Moderate intellectual disabilities; I50.9 Heart failure, unspecified; R41.82 Altered mental status, unspecified; R74.8 Abnormal levels of other serum enzymes; Z66 Do not resuscitate; I27.20 Pulmonary hypertension, unspecified; E78.5 Hyperlipidemia, unspecified; R05 Cough; M19.90 Unspecified osteoarthritis, unspecified site; G70.9 Myoneural disorder, unspecified; R13.10 Dysphagia, unspecified; H35.30 Unspecified macular degeneration
CPT/HCPCS: 36415; 70450; 71045; 80048; 83880; 85025; 96360; 99285; J7040; J7050; 71250; 74230; 80053; 80177; 81001; 84295; 84484; 92611-GN; 93005; 93308; 96361; 99284; A9270-GY; J1644; J1650; J1940; J1956; J3490; J7030; J7060

== ENCOUNTER 2018-01-17 11:35 | Inpatient (IN) | payer MEDICARE, MEDICAID ==
[2018-01-17] MEDS ORDERED: Sodium Chloride 0.9% 10 ML Syringe FLUSH PRN (11:42)
[2018-01-17] MEDS ORDERED: cefTRIAXone 1,000 MG in Sodium Chloride 0.9% 50 ML IV ONE (11:46)
[2018-01-17] MEDS ORDERED: cefTRIAXone 1,000 MG VIAL IV ONE (12:00)
[2018-01-17] MEDS ORDERED: Sodium Chloride 0.9% 1,000 ML IV ONE (12:10)
[2018-01-17] MEDS ORDERED: Enoxaparin 30 MG/0.3 ML Syringe SUBCUT SCH (12:30)
--- NOTE | 2018-01-17 12:31 | PCM.HP ---
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 The patient has been having no eating or drinking for a week and not urinating for greater than 24 hours. They stated she is barely able to open her mouth and is very tired and sleepy. She was in the hospital but 3 weeks ago for pneumonia and was treated and got better. She had a week that she was doing good and then this began. She can speak for cell but has a caregiver with her from the residential. She had pneumonia but has not had any cough, fevers, nasal congestion, diarrhea, abdominal pain. Apparently the residential and suggested that she go on hospice. She normally speaks herself but has not been able to do that recently. Certainly talk to her brother and sister and they did not want hospice at this time. He is a DNR/ DNI. - Related Data Allergies/Adverse Reactions: Allergies Allergy/AdvReac Type Severity Reaction Status Date / Time levofloxacin [From Levaquin] Allergy Other Verified 12/27/17 20:31 Home Medications: Home Meds Calcium Carbonate [Calcium] 1,500 mg PO DAILY 12/26/17 [History] Cholecalciferol (Vitamin D3) [Vitamin D3] 2,000 unit PO DAILY 12/26/17 [History] Fexofenadine [Maricruz] 180 mg PO DAILY 12/26/17 [History] Iron/Multivits,Stress Formula [Stress Formula with Iron] 1 tab PO DAILY [History] Nabumetone [Relafen] 750 mg PO 18 12/26/17 [History] levETIRAcetam [Keppra] 500 mg PO 12/26/17 [History] Furosemide [Lasix] 20 mg PO BID #30 tab 01/02/18 [Rx] Past Medical History HEENT History: Reports: Cataract, Macular Degeneration, Other (See Below) Other HEENT History: ptosis of the eyelid Cardiovascular History: Reports: High Cholesterol, Other (See Below) (CHF acute on chronic diastolic, heart murmur) Other Cardiovascular History: tachacardia Respiratory History: Reports: Pulmonary Fibrosis Genitourinary History: Reports: Urinary Incontinence Musculoskeletal History: Reports: Arthritis, Osteoporosis Neurological History: Reports: Seizure, Other (See Below) (History of hydrocephalus as a child) Other Neuro History: Hydrocephalus Psychiatric History: Reports: Developmental Delay Social & Family History - Family History Family Medical History: Noncontributory - Caffeine Use Caffeine Use: Reports: Other Other Caffeine Use: unknown H&P Review of Systems - Review of Systems: Review Of Systems: Unable To Obtain (Patient barely opens her eyes and cannot answer any questions. Very obtunded.) Exam - Exam Exam: See Below - Exam General: Obtunded HEENT: TMs Clear, Other (Uterus membranes very dry) Neck: Supple, Trachea Midline Lungs: Clear to Auscultation, Normal Respiratory Effort. No: Crackles, Rales, Rhonchi, Rub Cardiovascular: Regular Rhythm, Tachycardia. No: Systolic Murmur, Diastolic Murmur GI/Abdominal Exam: Normal Bowel Sounds, Soft, Non-Tender. No: No Distention Back Exam: Normal Inspection Extremities: Normal Range of Motion, No Pedal Edema Skin: Dry Neurological: No: Normal Speech Neuro Extensive - Mental Status: No: Alert, Oriented x3, Normal Mood/Affect, Normal Cognition, Memory Intact Neuro Extensive - Motor, Sensory, Reflexes: No: Normal Gait Psychiatric: Other (obtunded) - Patient Data Imaging Impressions Last 24 hrs: Glucose 70 - 100 mg/dL 164 (H) BUN 6 - 22 mg/dL 139 (H) Creatinine 0.60 - 1.10 mg/dL 3.26 (H) BUN/Creatinine Ratio 15.0 - 20.0 42.6 (H) Sodium 135 - 145 meq/L 167 (HH) Comments: Results rechecked Potassium 3.5 - 5.3 meq/L 5.0 Chloride 99 - 110 meq/L 126 (H) CO2 23 - 32 meq/L 28 Anion Gap with K 6 - 20 meq/L 18 Calcium 8.5 - 10.2 mg/dL 10.6 (H) Protein Total 5.5 - 8.2 g/dL 8.0 Albumin 3.5 - 5.0 g/dL 4.0 Alkaline Phosphatase 30 - 125 U/L 118 AST - SGOT 0 - 33 U/L 45 (H) ALT - SGPT 0 - 36 U/L 39 (H) Bilirubin Total <=1.2 mg/dL 0.6 Age Years 77 eGFR Non- >=60 mL/min/1.73m2 14 (L) eGFR WBC 4.0 - 11.0 K/uL 16.8 (H) RBC 3.80 - 5.30 M/uL 5.99 (H) Hemoglobin 11.5 - 15.8 g/dL 17.7 (H) Hematocrit 35.0 - 45.0 % 59.3 (H) MCV 80.0 - 98.0 fL 99.0 (H) MCH 25.5 - 34.0 pg 29.5 MCHC 31.5 - 36.5 g/dL 29.8 (L) RDW-CV 11.5 - 15.5 % 19.6 (H) RDW-SD 35.5 - 50.0 fl 61.8 (H) Platelet Count 140 - 400 K/uL 242 MPV 8.5 - 12.0 fL 12.6 (H) - Problem List (1) Shock SNOMED Code(s): 58106647 ICD Code: R57.9 - SHOCK, UNSPECIFIED Status: Acute Current Visit: Yes (2) Dehydration SNOMED Code(s): 78921001 ICD Code: E86.0 - DEHYDRATION Status: Acute Current Visit: Yes (3) Acute kidney injury SNOMED Code(s): 45564684 ICD Code: N17.9 - ACUTE KIDNEY FAILURE, UNSPECIFIED Status: Acute Current Visit: No Problem Details: Baseline creatinine 0.94 in 2017. Now at 1.0. Continue IVF as above. (4) DVT prophylaxis SNOMED Code(s): 389189528, 487118887 ICD Code: [id number] - Status: Acute Current Visit: No Problem Details: Start Lovenox today. Platelets are stable at 112. SCDs. (5) Hypernatremia SNOMED Code(s): 40298338 ICD Code: E87.0 - HYPEROSMOLALITY AND HYPERNATREMIA Status: Acute Current Visit: No (6) Moderate mental retardation SNOMED Code(s): 701333038, 222190417 ICD Code: F71 - MODERATE INTELLECTUAL DISABILITIES Status: Acute Current Visit: No Problem Details: Work with staff at residential to learn how to meet patient's psychosocial and physical needs. (7) Pneumonia SNOMED Code(s): 226996041 ICD Code: J18.9 - PNEUMONIA, UNSPECIFIED ORGANISM Status: Acute Current Visit: No Problem Details: Completed 5 days of levaquin. (8) Pulmonary hypertension SNOMED Code(s): 88908384 ICD Code: I27.20 - PULMONARY HYPERTENSION, UNSPECIFIED Status: Acute Current Visit: No (9) Palliative care status SNOMED Code(s): 682068987 ICD Code: Z51.5 - ENCOUNTER FOR PALLIATIVE CARE Status: Acute Current Visit: Yes Problem List Initiated/Reviewed/Updated: Yes Orders Last 24hrs: Active Orders 24 hr Category Date Time Status Admission Status [Patient Status] [ADT] Routine ADT 01/17/18 11:40 Active Patient Status [ADT] Routine ADT 01/17/18 12:20 Ordered Bedrest Bedside Commode [RC] ASDIRECTED Care 01/17/18 12:20 Ordered Oxygen Therapy [RC] PRN Care 01/17/18 12:20 Ordered VTE/DVT Education [RC] Per Unit Routine Care 01/17/18 12:20 Ordered Vital Signs [RC] Q4H Care 01/17/18 12:20 Ordered Nothing per Oral Now Diet [DIET] Diet 01/17/18 Lunch Ordered COMPREHENSIVE METABOLIC PN,CMP [CHEM] Routine Lab 01/17/18 16:00 Ordered CULTURE BLOOD [BC] Urgent Lab 01/17/18 11:43 Ordered CULTURE BLOOD [BC] Urgent Lab 01/17/18 11:43 Ordered LACTIC ACID [CHEM] Routine Lab 01/17/18 11:44 Ordered URINALYSIS W/MICROSCOPIC [UA W/MICROSCOPIC] [URIN] Lab 01/17/18 11:44 Ordered Routine Enoxaparin [Lovenox] Med 01/17/18 12:30 Ordered 30 mg SUBCUT Q24H Sodium Chloride 0.9% [Saline Flush] Med 01/17/18 11:42 Active 10 ml FLUSH ASDIRECTED PRN Blood Culture x2 Reflex Set [OM.PC] Urgent Oth 01/17/18 11:42 Ordered Peripheral IV Insertion Adult [OM.PC] Routine Oth 01/17/18 11:42 Ordered Sequential Compression Device [OM.PC] Per Unit Routine Oth 01/17/18 12:22 Ordered Code Status [Resuscitation Status] Routine Resus Stat 01/17/18 11:43 Ordered Medication Orders Enoxaparin Sodium (Lovenox) 30 mg SUBCUT Q24H DWAIN Sodium Chloride (Saline Flush) 10 ml FLUSH ASDIRECTED PRN PRN Reason: Keep Vein Open Assessment/Plan Comment:: 1. Admit to the ICU. Start with a bolus normal saline and the reevaluate. Patient is very ill and dehydrated. 2. Chest x-ray the clinic shows some pneumonia. Somewhat was her before. We' ll start Rocephin 1 g medially and get to the cultures before the Rocephin. 3. Lactic acid level and UA. Place Metcalf catheter. 4. VTE prophylaxis with 30 mg Lovenox. 5. Nothing by mouth. 6. Patient is a DNR/DNI per [place] human service staff. 7. Repeat chem 12 at 4 PM today.
[2018-01-17] MEDS ORDERED: Sodium Chloride 0.9% 1,000 ML IV SCH ×2 (13:18→16:00)
[2018-01-17] MEDS: Azithromycin 500 MG in Sodium Chloride 0.9% 250 ML IV SCH (13:34)
--- NOTE | 2018-01-17 17:29 | PCM.PN ---
- General Info Date of Service: 01/17/18 Admission Dx/Problem (Free Text): Critical care note-information from pharmacy says she was on 20 mg of Lasix twice a day for 2 weeks that ended today because of last hospitalization. Patient is obtunded and responds to pain only. - Patient Data Vitals - Most Recent: Last Vital Signs Temp 96.7 F 01/17/18 16:00 Pulse 110 H 01/17/18 12:20 Resp 20 01/17/18 16:00 BP 112/68 01/17/18 16:00 Pulse Ox 100 01/17/18 16:00 Weight - Most Recent: 91 lb I&O - Last 24 Hours: Intake & Output 01/17/18 01/17/18 01/17/18 06:59 14:59 22:59 Intake Total 1249 Output Total 75 Balance 1174 Lab Results Last 24 Hours: Laboratory Results - last 24 hr 01/17/18 01/17/18 01/17/18 Range/Units 12:30 12:55 16:10 Sodium 176 H* D (135-145) mmol/L Potassium 4.0 (3.5-5.3) mmol/L Chloride 133 H* D (100-110) mmol/L Carbon Dioxide 27 (21-32) mmol/L BUN 129 H* (7-18) mg/dL Creatinine 3.1 H* (0.55-1.02) mg/dL Est Cr Clr Drug Dosing TNP Estimated GFR (MDRD) 14 L (>60) BUN/Creatinine Ratio 41.6 H (9-20) Glucose 99 (80-116) mg/dL Lactic Acid 5.3 H* (0.4-2.2) mmol/L Calcium 9.1 (8.6-10.2) mg/dL Total Bilirubin 0.7 (0.1-1.3) mg/dL AST 39 H D (5-25) IU/L ALT 41 H D (12-36) U/L Alkaline Phosphatase 88 (56-112) IU/L Total Protein 6.2 (6.0-8.0) g/dL Albumin 2.5 L (3.2-4.6) g/dL Globulin 3.7 g/dL Albumin/Globulin Ratio 0.7 Urine Color Yellow (YELLOW) Urine Appearance Slightly cloudy (CLEAR) Urine pH 5.0 (5.0-6.5) Ur Specific [place] 1.025 (1.010-1.025) Urine Protein Negative (NEGATIVE) mg/dL Urine Glucose (UA) Normal (NEGATIVE) mg/dL Urine Ketones Negative (NEGATIVE) mg/dL Urine Occult Blood Negative (NEGATIVE) Urine Nitrite Negative (NEGATIVE) Urine Bilirubin Negative (NEGATIVE) Urine Urobilinogen Normal (NEGATIVE) mg/dL Ur Leukocyte Esterase Moderate H (NEGATIVE) Urine RBC 0-5 (0) Urine WBC 0-5 (0) Ur Squamous Epith Cells Few H (NS,R,O) Amorphous Sediment Moderate Urine Bacteria Rare H (NS) Hyaline Casts Many H (NS) Drew Results Last 24 Hours: Microbiology 01/17/18 12:35 Anaerobic Blood Culture - Final Blood - Venous - Lab Draw Med Orders - Current: Current Medications Heparin Sodium (Porcine) (Heparin Sodium) 5,000 units SUBCUT Q12H [facility] Azithromycin 500 mg/ Sodium (Chloride) 250 mls @ 250 mls/hr IV Q24H [facility] Last Admin: 01/17/18 13:34 Dose: 250 mls/hr Sodium Chloride (Normal Saline) 1,000 mls @ 999 mls/hr IV ASDIRECTED DWAIN Last Admin: 01/17/18 13:38 Dose: 999 mls/hr Sodium Chloride (Normal Saline) 1,000 mls @ 250 mls/hr IV ASDIRECTED [facility] Last Admin: 01/17/18 15:45 Dose: 250 mls/hr Sodium Chloride (Saline Flush) 10 ml FLUSH ASDIRECTED PRN PRN Reason: Keep Vein Open Discontinued Medications Ceftriaxone Sodium (Rocephin) 1,000 mg IV ONETIME ONE Stop: 01/17/18 12:01 Last Admin: 01/17/18 13:24 Dose: 1,000 mg Enoxaparin Sodium (Lovenox) 30 mg SUBCUT Q24H [facility] Ceftriaxone Sodium 1,000 mg/ (Sodium Chloride) 50 mls @ 100 mls/hr IV ONETIME ONE Stop: 01/17/18 12:15 Sodium Chloride (Normal Saline) 1,000 mls @ 999 mls/hr IV .BOLUS ONE Stop: 01/17/18 13:10 Last Admin: 01/17/18 12:35 Dose: 999 mls/hr - Exam General: Obtunded, Other (Pain response only) HEENT: Pupils Equal Lungs: Clear to Auscultation, Normal Respiratory Effort Cardiovascular: Regular Rate, Regular Rhythm, Tachycardia GI/Abdominal Exam: Soft, Non-Tender Extremities: No Pedal Edema Psy/Mental Status: No: Alert, Normal Affect, Normal Mood - Problem List & Annotations (1) Shock SNOMED Code(s): 46697529 Code(s): R57.9 - SHOCK, UNSPECIFIED Status: Acute Current Visit: Yes (2) Dehydration SNOMED Code(s): 16504935 Code(s): E86.0 - DEHYDRATION Status: Acute Current Visit: Yes (3) Acute kidney injury SNOMED Code(s): 10657706 Code(s): N17.9 - ACUTE KIDNEY FAILURE, UNSPECIFIED Status: Acute Current Visit: No Annotation/Comment:: Baseline creatinine 0.94 in 2017. Now at 1.0. Continue IVF as above. (4) DVT prophylaxis SNOMED Code(s): 217309191, 427756603 Code(s): UVT9939 - Status: Acute Current Visit: No Annotation/Comment: : Start Lovenox today. Platelets are stable at 112. SCDs. (5) Hypernatremia SNOMED Code(s): 28801009 Code(s): E87.0 - HYPEROSMOLALITY AND HYPERNATREMIA Status: Acute Current Visit: No (6) Moderate mental retardation SNOMED Code(s): 135661619, 922561095 Code(s): F71 - MODERATE INTELLECTUAL DISABILITIES Status: Acute Current Visit: No Annotation/Comment:: Work with staff at correction to learn how to meet patient's psychosocial and physical needs. (7) Pneumonia SNOMED Code(s): 010587810 Code(s): J18.9 - PNEUMONIA, UNSPECIFIED ORGANISM Status: Acute Current Visit: No Annotation/Comment:: Completed 5 days of levaquin. (8) Pulmonary hypertension SNOMED Code(s): 02998430 Code(s): I27.20 - PULMONARY HYPERTENSION, UNSPECIFIED Status: Acute Current Visit: No (9) Palliative care status SNOMED Code(s): 313850085 Code(s): Z51.5 - ENCOUNTER FOR PALLIATIVE CARE Status: Acute Current Visit: Yes - Problem List Review Problem List Initiated/Reviewed/Updated: Yes - My Orders Last 24 Hours: My Active Orders 01/17/18 11:40 Admission Status [Patient Status] [ADT] Routine 01/17/18 11:42 Sodium Chloride 0.9% [Saline Flush] 10 ml FLUSH ASDIRECTED PRN Blood Culture x2 Reflex Set [OM.PC] Urgent Peripheral IV Insertion Adult [OM.PC] Routine 01/17/18 11:43 Code Status [Resuscitation Status] Routine 01/17/18 12:10 Transfer Patient (Change bed) [ADT] Routine Urinary Catheter Insertion [Insert Urinary Catheter] [OM.PC] ONETIME 01/17/18 12:20 Patient Status [ADT] Routine Bedrest Bedside Commode [RC] ASDIRECTED Oxygen Therapy [RC] PRN VTE/DVT Education [RC] Per Unit Routine Vital Signs [RC] 04,08,12,16,20,00 01/17/18 12:22 Sequential Compression Device [OM.PC] Per Unit Routine 01/17/18 12:30 CULTURE BLOOD [BC] Urgent 01/17/18 12:35 CULTURE BLOOD [BC] Urgent 01/17/18 12:55 URINALYSIS W/MICROSCOPIC [UA W/MICROSCOPIC] [URIN] Routine 01/17/18 13:00 Azithromycin [Zithromax] 500 mg Sodium Chloride 0.9% [Normal Saline] 250 ml IV Q24H 01/17/18 13:09 Urinary Catheter Assessment [RC] 08,16,00 01/17/18 13:18 Sodium Chloride 0.9% [Normal Saline] 1,000 ml IV ASDIRECTED 01/17/18 16:00 Sodium Chloride 0.9% [Normal Saline] 1,000 ml IV ASDIRECTED 01/17/18 21:00 Heparin Sodium 5,000 units SUBCUT Q12H 01/17/18 Lunch Nothing per Oral Now Diet [DIET] - Plan Plan:: 1. Continue aggressive hydration which is helping. Her blood pressures come up to systolic over 100 and pulse down in the low 100s. 2. Her sodium has increased. When I believe she is adequately hydrated and her vitals under controlled and I will start giving her normal saline. 3. Continue antibiotics. 4. Check CMP, CBC in the a.m. 5. I will check of this patient with overnight physician.
[2018-01-17] MEDS: Sodium Chloride 0.9% 1,000 ML IV SCH ×2 (19:00→20:57)
[2018-01-17] MEDS: Heparin Sodium 5,000 Units/ML Vial SUBCUT SCH (21:02)
[2018-01-17] MEDS: Sodium Chloride 0.45% 1,000 ML IV SCH (22:30)
[2018-01-18] MEDS: Sodium Chloride 0.45% 1,000 ML IV SCH ×2 (06:00→16:24)
--- NOTE | 2018-01-18 07:43 | PCM.PN ---
- General Info Date of Service: 01/18/18 Admission Dx/Problem (Free Text): Patient has her eyes open today. She does not respond when asked questions. Nurses report that she is alert today compared to yesterday when she was very obtunded. - Patient Data Vitals - Most Recent: Last Vital Signs Temp 97.4 F 01/18/18 04:00 Pulse 97 01/18/18 06:38 Resp 22 H 01/18/18 06:38 BP 98/43 L 01/18/18 06:38 Pulse Ox 100 01/18/18 06:38 Weight - Most Recent: 100 lb 5 oz I&O - Last 24 Hours: Intake & Output 01/17/18 01/18/18 01/18/18 22:59 06:59 14:59 Intake Total 3800 1000 Output Total 352 316 Balance 3448 684 Lab Results Last 24 Hours: Laboratory Results - last 24 hr 01/17/18 01/17/18 01/17/18 Range/Units 12:30 12:55 16:10 WBC (4.5-12.0) X10-3/uL RBC (3.23-5.20) x10(6)uL Hgb (11.5-15.5) g/dL Hct (30.0-51.3) % MCV (80-96) fL MCH (27.7-33.6) pg MCHC (32.2-35.4) g/dL RDW (11.5-15.5) % Plt Count (125-369) X10(3)uL MPV (7.4-10.4) fL Neut % (Auto) (46-82) % Lymph % (Auto) (13-37) % [place] % (Auto) (4-12) % Eos % (Auto) (1.0-5.0) % Baso % (Auto) (0-2) % Neut # (Auto) (1.6-8.3) # Lymph # (Auto) (0.6-5.0) # [place] # (Auto) (0.0-1.3) # Eos # (Auto) (0.0-0.8) # Baso # (Auto) (0.0-0.2) # Sodium 176 H* D (135-145) mmol/L Potassium 4.0 (3.5-5.3) mmol/L Chloride 133 H* D (100-110) mmol/L Carbon Dioxide 27 (21-32) mmol/L BUN 129 H* (7-18) mg/dL Creatinine 3.1 H* (0.55-1.02) mg/dL Est Cr Clr Drug Dosing TNP Estimated GFR (MDRD) 14 L (>60) BUN/Creatinine Ratio 41.6 H (9-20) Glucose 99 (80-116) mg/dL Lactic Acid 5.3 H* (0.4-2.2) mmol/L Calcium 9.1 (8.6-10.2) mg/dL Magnesium (1.8-2.5) mg/dL Total Bilirubin 0.7 (0.1-1.3) mg/dL AST 39 H D (5-25) IU/L ALT 41 H D (12-36) U/L Alkaline Phosphatase 88 (56-112) IU/L Total Protein 6.2 (6.0-8.0) g/dL Albumin 2.5 L (3.2-4.6) g/dL Globulin 3.7 g/dL Albumin/Globulin Ratio 0.7 Urine Color Yellow (YELLOW) Urine Appearance Slightly cloudy (CLEAR) Urine pH 5.0 (5.0-6.5) Ur Specific [place] 1.025 (1.010-1.025) Urine Protein Negative (NEGATIVE) mg/dL Urine Glucose (UA) Normal (NEGATIVE) mg/dL Urine Ketones Negative (NEGATIVE) mg/dL Urine Occult Blood Negative (NEGATIVE) Urine Nitrite Negative (NEGATIVE) Urine Bilirubin Negative (NEGATIVE) Urine Urobilinogen Normal (NEGATIVE) mg/dL Ur Leukocyte Esterase Moderate H (NEGATIVE) Urine RBC 0-5 (0) Urine WBC 0-5 (0) Ur Squamous Epith Cells Few H (NS,R,O) Amorphous Sediment Moderate Urine Bacteria Rare H (NS) Hyaline Casts Many H (NS) 01/17/18 01/17/18 01/17/18 Range/Units 16:10 21:18 21:18 WBC 13.7 H (4.5-12.0) X10-3/uL RBC 4.24 (3.23-5.20) x10(6)uL Hgb 12.9 (11.5-15.5) g/dL Hct 39.8 (30.0-51.3) % MCV 93.8 (80-96) fL MCH 30.4 (27.7-33.6) pg MCHC 32.5 (32.2-35.4) g/dL RDW 15.9 H (11.5-15.5) % Plt Count 128 (125-369) X10(3)uL MPV 10.7 H (7.4-10.4) fL Neut % (Auto) 78.1 (46-82) % Lymph % (Auto) 13.0 (13-37) % [place] % (Auto) 7.3 (4-12) % Eos % (Auto) 1 (1.0-5.0) % Baso % (Auto) 1 (0-2) % Neut # (Auto) 10.6 H (1.6-8.3) # Lymph # (Auto) 1.8 (0.6-5.0) # [place] # (Auto) 1.0 (0.0-1.3) # Eos # (Auto) 0.1 (0.0-0.8) # Baso # (Auto) 0.1 (0.0-0.2) # Sodium 174 H* (135-145) mmol/L Potassium 3.9 (3.5-5.3) mmol/L Chloride 134 H* (100-110) mmol/L Carbon Dioxide 25 (21-32) mmol/L BUN 118 H* (7-18) mg/dL Creatinine 2.7 H* (0.55-1.02) mg/dL Est Cr Clr Drug Dosing 11.01 Estimated GFR (MDRD) 17 L (>60) BUN/Creatinine Ratio 43.7 H (9-20) Glucose 91 (80-116) mg/dL Lactic Acid (0.4-2.2) mmol/L Calcium 8.1 L (8.6-10.2) mg/dL Magnesium 3.2 H* (1.8-2.5) mg/dL Total Bilirubin (0.1-1.3) mg/dL AST (5-25) IU/L ALT (12-36) U/L Alkaline Phosphatase (56-112) IU/L Total Protein (6.0-8.0) g/dL Albumin (3.2-4.6) g/dL Globulin g/dL Albumin/Globulin Ratio Urine Color (YELLOW) Urine Appearance (CLEAR) Urine pH (5.0-6.5) Ur Specific [place] (1.010-1.025) Urine Protein (NEGATIVE) mg/dL Urine Glucose (UA) (NEGATIVE) mg/dL Urine Ketones (NEGATIVE) mg/dL Urine Occult Blood (NEGATIVE) Urine Nitrite (NEGATIVE) Urine Bilirubin (NEGATIVE) Urine Urobilinogen (NEGATIVE) mg/dL Ur Leukocyte Esterase (NEGATIVE) Urine RBC (0) Urine WBC (0) Ur Squamous Epith Cells (NS,R,O) Amorphous Sediment Urine Bacteria (NS) Hyaline Casts (NS) 01/18/18 01/18/18 Range/Units 06:10 06:10 WBC 10.9 (4.5-12.0) X10-3/uL RBC 4.10 (3.23-5.20) x10(6)uL Hgb 12.3 (11.5-15.5) g/dL Hct 38.1 (30.0-51.3) % MCV 92.9 (80-96) fL MCH 30.0 (27.7-33.6) pg MCHC 32.3 (32.2-35.4) g/dL RDW 15.7 H (11.5-15.5) % Plt Count 123 L (125-369) X10(3)uL MPV 10.6 H (7.4-10.4) fL Neut % (Auto) 77.6 (46-82) % Lymph % (Auto) 14.1 (13-37) % [place] % (Auto) 5.5 (4-12) % Eos % (Auto) 2 (1.0-5.0) % Baso % (Auto) 0 (0-2) % Neut # (Auto) 8.5 H (1.6-8.3) # Lymph # (Auto) 1.5 (0.6-5.0) # [place] # (Auto) 0.6 (0.0-1.3) # Eos # (Auto) 0.3 (0.0-0.8) # Baso # (Auto) 0.0 (0.0-0.2) # Sodium 168 H* (135-145) mmol/L Potassium 3.1 L (3.5-5.3) mmol/L Chloride 133 H* (100-110) mmol/L Carbon Dioxide 22 (21-32) mmol/L BUN 92 H D (7-18) mg/dL Creatinine 1.8 H (0.55-1.02) mg/dL Est Cr Clr Drug Dosing 18.20 Estimated GFR (MDRD) 27 L (>60) BUN/Creatinine Ratio 51.1 H (9-20) Glucose 85 (80-116) mg/dL Lactic Acid (0.4-2.2) mmol/L Calcium 7.5 L (8.6-10.2) mg/dL Magnesium (1.8-2.5) mg/dL Total Bilirubin 0.7 (0.1-1.3) mg/dL AST 44 H D (5-25) IU/L ALT 34 D (12-36) U/L Alkaline Phosphatase 71 (56-112) IU/L Total Protein 5.1 L (6.0-8.0) g/dL Albumin 2.1 L (3.2-4.6) g/dL Globulin 3.0 g/dL Albumin/Globulin Ratio 0.7 Urine Color (YELLOW) Urine Appearance (CLEAR) Urine pH (5.0-6.5) Ur Specific [place] (1.010-1.025) Urine Protein (NEGATIVE) mg/dL Urine Glucose (UA) (NEGATIVE) mg/dL Urine Ketones (NEGATIVE) mg/dL Urine Occult Blood (NEGATIVE) Urine Nitrite (NEGATIVE) Urine Bilirubin (NEGATIVE) Urine Urobilinogen (NEGATIVE) mg/dL Ur Leukocyte Esterase (NEGATIVE) Urine RBC (0) Urine WBC (0) Ur Squamous Epith Cells (NS,R,O) Amorphous Sediment Urine Bacteria (NS) Hyaline Casts (NS) Drew Results Last 24 Hours: Microbiology 01/17/18 12:35 Anaerobic Blood Culture - Final Blood - Venous - Lab Draw Med Orders - Current: Current Medications Heparin Sodium (Porcine) (Heparin Sodium) 5,000 units SUBCUT Q12H [facility] Last Admin: 01/17/18 21:02 Dose: 5,000 units Azithromycin 500 mg/ Sodium (Chloride) 250 mls @ 250 mls/hr IV Q24H [facility] Last Admin: 01/17/18 13:34 Dose: 250 mls/hr Sodium Chloride (Sodium Chloride 0.45%) 1,000 mls @ 100 mls/hr IV ASDIRECTED [facility] Last Admin: 01/18/18 06:00 Dose: 125 mls/hr Sodium Chloride (Saline Flush) 10 ml FLUSH ASDIRECTED PRN PRN Reason: Keep Vein Open Discontinued Medications Ceftriaxone Sodium (Rocephin) 1,000 mg IV ONETIME ONE Stop: 01/17/18 12:01 Last Admin: 01/17/18 13:24 Dose: 1,000 mg Enoxaparin Sodium (Lovenox) 30 mg SUBCUT Q24H [facility] Ceftriaxone Sodium 1,000 mg/ (Sodium Chloride) 50 mls @ 100 mls/hr IV ONETIME ONE Stop: 01/17/18 12:15 Sodium Chloride (Normal Saline) 1,000 mls @ 999 mls/hr IV .BOLUS ONE Stop: 01/17/18 13:10 Last Admin: 01/17/18 12:35 Dose: 999 mls/hr Sodium Chloride (Normal Saline) 1,000 mls @ 999 mls/hr IV ASDIRECTED [facility] Last Admin: 01/17/18 13:38 Dose: 999 mls/hr Sodium Chloride (Normal Saline) 1,000 mls @ 250 mls/hr IV ASDIRECTED [facility] Last Admin: 01/17/18 15:45 Dose: 250 mls/hr Sodium Chloride (Normal Saline) 1,000 mls @ 500 mls/hr IV ASDIRECTED [facility] Last Admin: 01/17/18 20:57 Dose: 500 mls/hr - Exam General: Other (Eyes open but not oriented, she is cooperative) Neck: Supple Lungs: Clear to Auscultation, Normal Respiratory Effort Cardiovascular: Regular Rate, Regular Rhythm, No Murmurs Extremities: No Pedal Edema Psy/Mental Status: Alert. No: Normal Affect, Normal Mood - Problem List & Annotations (1) Shock SNOMED Code(s): 07927079 Code(s): R57.9 - SHOCK, UNSPECIFIED Status: Acute Current Visit: Yes Annotation/Comment:: Hypovolemic (2) Dehydration SNOMED Code(s): 32791892 Code(s): E86.0 - DEHYDRATION Status: Acute Current Visit: Yes (3) Acute kidney injury SNOMED Code(s): 87643117 Code(s): N17.9 - ACUTE KIDNEY FAILURE, UNSPECIFIED Status: Acute Current Visit: No Annotation/Comment:: Baseline creatinine 0.94 in 2017. Now at 1.0. Continue IVF as above. (4) DVT prophylaxis SNOMED Code(s): 490196420, 201292410 Code(s): MED2433 - Status: Acute Current Visit: No Annotation/Comment: : Start Lovenox today. Platelets are stable at 112. SCDs. (5) Hypernatremia SNOMED Code(s): 36316561 Code(s): E87.0 - HYPEROSMOLALITY AND HYPERNATREMIA Status: Acute Current Visit: No (6) Moderate mental retardation SNOMED Code(s): 197289041, 793591551 Code(s): F71 - MODERATE INTELLECTUAL DISABILITIES Status: Acute Current Visit: No Annotation/Comment:: Work with staff at [facility] to learn how to meet patient's psychosocial and physical needs. (7) Pneumonia SNOMED Code(s): 064368399 Code(s): J18.9 - PNEUMONIA, UNSPECIFIED ORGANISM Status: Acute Current Visit: No Annotation/Comment:: Completed 5 days of levaquin. (8) Pulmonary hypertension SNOMED Code(s): 02174580 Code(s): I27.20 - PULMONARY HYPERTENSION, UNSPECIFIED Status: Acute Current Visit: No (9) Palliative care status SNOMED Code(s): 598932458 Code(s): Z51.5 - ENCOUNTER FOR PALLIATIVE CARE Status: Acute Current Visit: Yes - Problem List Review Problem List Initiated/Reviewed/Updated: Yes - My Orders Last 24 Hours: My Active Orders 01/17/18 11:40 Admission Status [Patient Status] [ADT] Routine 01/17/18 11:42 Sodium Chloride 0.9% [Saline Flush] 10 ml FLUSH ASDIRECTED PRN Blood Culture x2 Reflex Set [OM.PC] Urgent Peripheral IV Insertion Adult [OM.PC] Routine 01/17/18 11:43 Code Status [Resuscitation Status] Routine 01/17/18 12:10 Transfer Patient (Change bed) [ADT] Routine Urinary Catheter Insertion [Insert Urinary Catheter] [OM.PC] ONETIME 01/17/18 12:20 Patient Status [ADT] Routine Bedrest Bedside Commode [RC] ASDIRECTED Oxygen Therapy [RC] PRN Vital Signs [RC] 04,08,12,16,20,00 01/17/18 12:22 Sequential Compression Device [OM.PC] Per Unit Routine 01/17/18 12:30 CULTURE BLOOD [BC] Urgent 01/17/18 12:35 CULTURE BLOOD [BC] Urgent 01/17/18 12:55 URINALYSIS W/MICROSCOPIC [UA W/MICROSCOPIC] [URIN] Routine 01/17/18 13:00 Azithromycin [Zithromax] 500 mg Sodium Chloride 0.9% [Normal Saline] 250 ml IV Q24H 01/17/18 13:09 Urinary Catheter Assessment [RC] 08,16,00 01/17/18 21:00 Heparin Sodium 5,000 units SUBCUT Q12H 01/17/18 22:15 Sodium Chloride 0.45% 1,000 ml IV ASDIRECTED 01/17/18 22:51 Communication Order [RC] ASDIRECTED 01/17/18 Lunch Nothing per Oral Now Diet [DIET] - Plan Plan:: 1. I believe the patient is actively hydrated as her vitals are more stable. Blood pressures little low but this may be normal for her since her pulse is now in the 70s. I changed her fluids to half-normal saline last evening. I'll change the rate from 125 mL to 100 mL now. 2. Up in chair the patient can tolerate it. 3. Advance the diet if the patient goes more alert. 4. Later on I will check chest x-ray report when I get it. It's not been acute phase reactant from her profound dehydration. Will continue IV antibodies for now and reassess later. 5. Continue eyes nose. Continue Metcalf catheter for now. 6. BMP at 4 PM today
[2018-01-18] MEDS: Heparin Sodium 5,000 Units/ML Vial SUBCUT SCH ×2 (08:57→20:26)
[2018-01-18] MEDS: Azithromycin 500 MG in Sodium Chloride 0.9% 250 ML IV SCH (12:38)
[2018-01-19] MEDS: Sodium Chloride 0.45% 1,000 ML IV SCH (02:30)
[2018-01-19] MEDS: Heparin Sodium 5,000 Units/ML Vial SUBCUT SCH ×2 (09:24→20:28)
--- NOTE | 2018-01-19 09:41 | PCM.PN ---
- General Info Date of Service: 01/19/18 Admission Dx/Problem (Free Text): Patient is more alert. Staff is feeding her. Diet is going well. Staff has no concerns. - Patient Data Vitals - Most Recent: Last Vital Signs Temp 97.8 F 01/19/18 04:00 Pulse 92 01/18/18 20:00 Resp 18 01/19/18 04:00 BP 96/49 L 01/19/18 04:00 Pulse Ox 97 01/19/18 08:33 Weight - Most Recent: 111 lb 12.8 oz I&O - Last 24 Hours: Intake & Output 01/18/18 01/19/18 01/19/18 22:59 06:59 14:59 Intake Total 835 775 Output Total 325 275 Balance 510 500 Lab Results Last 24 Hours: Laboratory Results - last 24 hr 01/18/18 01/19/18 Range/Units 16:05 06:15 Sodium 167 H* 163 H* (135-145) mmol/L Potassium 3.2 L 2.9 L (3.5-5.3) mmol/L Chloride 132 H* 130 H* (100-110) mmol/L Carbon Dioxide 24 21 (21-32) mmol/L BUN 78 H D 57 H D (7-18) mg/dL Creatinine 1.7 H 1.3 H (0.55-1.02) mg/dL Est Cr Clr Drug Dosing 19.27 25.20 mL/min Estimated GFR (MDRD) 29 L 40 L (>60) BUN/Creatinine Ratio 45.9 H 43.8 H (9-20) Glucose 99 96 (80-116) mg/dL Calcium 7.6 L 7.7 L (8.6-10.2) mg/dL Drew Results Last 24 Hours: Microbiology 01/17/18 12:30 Aerobic Blood Culture - Preliminary Blood - Venous NO GROWTH AFTER 1 DAY Anaerobic Blood Culture - Preliminary NO GROWTH AFTER 1 DAY 01/17/18 12:35 Aerobic Blood Culture - Preliminary Blood - Venous - Lab Draw NO GROWTH AFTER 1 DAY Anaerobic Blood Culture - Final Med Orders - Current: Current Medications Heparin Sodium (Porcine) (Heparin Sodium) 5,000 units SUBCUT Q12H [facility] Last Admin: 01/19/18 09:24 Dose: 5,000 units Azithromycin 500 mg/ Sodium (Chloride) 250 mls @ 250 mls/hr IV Q24H [facility] Last Admin: 01/18/18 12:38 Dose: 250 mls/hr Dextrose/Water (Dextrose 5% In Water) 1,000 mls @ 70 mls/hr IV ASDIRECTED [facility] Sodium Chloride (Saline Flush) 10 ml FLUSH ASDIRECTED PRN PRN Reason: Keep Vein Open Discontinued Medications Ceftriaxone Sodium (Rocephin) 1,000 mg IV ONETIME ONE Stop: 01/17/18 12:01 Last Admin: 01/17/18 13:24 Dose: 1,000 mg Enoxaparin Sodium (Lovenox) 30 mg SUBCUT Q24H [facility] Ceftriaxone Sodium 1,000 mg/ (Sodium Chloride) 50 mls @ 100 mls/hr IV ONETIME ONE Stop: 01/17/18 12:15 Sodium Chloride (Normal Saline) 1,000 mls @ 999 mls/hr IV .BOLUS ONE Stop: 01/17/18 13:10 Last Admin: 01/17/18 12:35 Dose: 999 mls/hr Sodium Chloride (Normal Saline) 1,000 mls @ 999 mls/hr IV ASDIRECTED [facility] Last Admin: 01/17/18 13:38 Dose: 999 mls/hr Sodium Chloride (Normal Saline) 1,000 mls @ 250 mls/hr IV ASDIRECTED [facility] Last Admin: 01/17/18 15:45 Dose: 250 mls/hr Sodium Chloride (Normal Saline) 1,000 mls @ 500 mls/hr IV ASDIRECTED [facility] Last Admin: 01/17/18 20:57 Dose: 500 mls/hr Sodium Chloride (Sodium Chloride 0.45%) 1,000 mls @ 100 mls/hr IV ASDIRECTED [facility] Last Admin: 01/19/18 02:30 Dose: 100 mls/hr - Exam General: Alert, Cooperative. No: Oriented Lungs: Clear to Auscultation, Normal Respiratory Effort Cardiovascular: Regular Rate, Regular Rhythm, No Murmurs GI/Abdominal Exam: Normal Bowel Sounds Extremities: No Pedal Edema - Problem List & Annotations (1) Shock SNOMED Code(s): 89641179 Code(s): R57.9 - SHOCK, UNSPECIFIED Status: Acute Current Visit: Yes Annotation/Comment:: Hypovolemic (2) Dehydration SNOMED Code(s): 17470346 Code(s): E86.0 - DEHYDRATION Status: Acute Current Visit: Yes (3) Acute kidney injury SNOMED Code(s): 15404405 Code(s): N17.9 - ACUTE KIDNEY FAILURE, UNSPECIFIED Status: Acute Current Visit: No Annotation/Comment:: Baseline creatinine 0.94 in 2017. Now at 1.0. Continue IVF as above. (4) DVT prophylaxis SNOMED Code(s): 541302962, 226374857 Code(s): LVT9323 - Status: Acute Current Visit: No Annotation/Comment: : Start Lovenox today. Platelets are stable at 112. SCDs. (5) Hypernatremia SNOMED Code(s): 51492122 Code(s): E87.0 - HYPEROSMOLALITY AND HYPERNATREMIA Status: Acute Current Visit: No (6) Moderate mental retardation SNOMED Code(s): 686626515, 162812514 Code(s): F71 - MODERATE INTELLECTUAL DISABILITIES Status: Acute Current Visit: No Annotation/Comment:: Work with staff at [facility] to learn how to meet patient's psychosocial and physical needs. (7) Pulmonary hypertension SNOMED Code(s): 16122909 Code(s): I27.20 - PULMONARY HYPERTENSION, UNSPECIFIED Status: Acute Current Visit: No (8) Palliative care status SNOMED Code(s): 750774996 Code(s): Z51.5 - ENCOUNTER FOR PALLIATIVE CARE Status: Acute Current Visit: Yes - Problem List Review Problem List Initiated/Reviewed/Updated: Yes - My Orders Last 24 Hours: My Active Orders 01/18/18 09:41 Transfer Patient (Change bed) [ADT] Routine 01/18/18 Lunch Regular Diet [DIET] 01/19/18 08:05 DC Metcalf Catheter [Urinary Catheter Removal] [RC] Per Unit Routine 01/19/18 09:45 Dextrose 5% in Water 1,000 ml IV ASDIRECTED 01/19/18 16:00 SODIUM,NA [CHEM] Routine 01/20/18 06:00 BASIC METABOLIC PANEL,BMP [CHEM] AM - Plan Plan:: 1. Stop Metcalf catheter and telemetry. 2. Stop normal saline. 3. D5 water at a rate of 70 mL an hour 4. Sodium at 4 PM and a BMP in a.m.4. 5. DC IV antibiotics.
[2018-01-19] MEDS: Dextrose 5% in Water 1,000 ML IV SCH (12:39)
[2018-01-20] MEDS: Dextrose 5% in Water 1,000 ML IV SCH ×2 (03:00→17:16)
[2018-01-20] MEDS: Heparin Sodium 5,000 Units/ML Vial SUBCUT SCH ×2 (09:20→20:17)
--- NOTE | 2018-01-20 10:46 | CR ---
INDICATION: Followup pneumonia. CHEST: An AP upright portable view of the chest 01/20/2018 was compared with and 12/26/2017, Heart appeared somewhat enlarged. The aorta is tortuous with calcification in the arch. Prominent pulmonary arteries are again noted, compatible with pulmonary hypertension - correlate clinically. Heavy markings are noted at the lung bases, possibly on the basis of fibrosis, although pneumonia and additionally pleuritis on the right (blunting of the right costophrenic angle) cannot be excluded. No gross evidence of CHF is identified. However, interstitial markings are prominent, and while likely they are fibrotic in nature, other etiologies, such as edema, although less likely, cannot be excluded entirely. No gross consolidating pneumonia was identified. IMPRESSION: 1. Increasing infiltration suggested at the right lung base with stable appearance at the left lung base, except for left costophrenic angle, where slight increased infiltrate is suggested. Bibasilar pneumonia and pleuritis on the right are suggested, possibly superimposed on fibrotic changes - correlate clinically. 2. ASHD with cardiomegaly. 3. Prominent pulmonary arteries suggesting the possibility of pulmonary hypertension. 4. Interstitial markings, most likely fibrotic in nature. MTDD
[2018-01-20] MEDS: Amoxicillin/Clavulanate K 500-125 MG Tab PO SCH ×2 (11:53→20:17)
[2018-01-20] MEDS: levETIRAcetam 500 MG Tab PO SCH ×2 (11:53→20:17)
--- NOTE | 2018-01-20 15:07 | PN ---
DATE SEEN: 01/20/2018 SUBJECTIVE: Kaela Small is a 77-year-old female with symptomatic hypernatremia. Markedly elevated sodium. It has gone from 168, 167, 163, 159, and 152 today. Chloride 133, 132, 130, and 119. Of great consequence, GFR is markedly impaired upon coming in, 27, 29, 40, and today 53. IV fluids are presently in place. Chest x-ray, suspicion for worsening right lower lobe pneumonia. Intermittently awake, otherwise appropriate. PHYSICAL EXAMINATION: VITAL SIGNS: BP 94/40, 56 is the mean, 73 is the pulse, weight 52.254 kg. GENERAL: Appears to be comfortable. O2 satisfactory. NECK: Benign. Thyroid small. CHEST: Decreased breath sounds. Coarse rhonchi throughout. HEART: Regular. ABDOMEN: Benign. ASSESSMENT: 1. Pneumonia persists. 2. Hypernatremic. PLAN: Diabetes insipidus may be a new originating caution. We will discontinue IV fluids. Complementary care and well-being. Encourage oral fluids. Proceed accordingly. Recheck lipids. To recheck electrolytes in the morning. /[id number] ANTONINO/ELLEN
[2018-01-21] MEDS: Heparin Sodium 5,000 Units/ML Vial SUBCUT SCH ×2 (09:00→21:02)
[2018-01-21] MEDS: levETIRAcetam 500 MG Tab PO SCH ×2 (09:00→17:34)
[2018-01-21] MEDS: Amoxicillin/Clavulanate K 500-125 MG Tab PO SCH ×2 (09:00→21:02)
[2018-01-22] MEDS: Amoxicillin/Clavulanate K 500-125 MG Tab PO SCH ×2 (08:53→20:24)
[2018-01-22] MEDS: Heparin Sodium 5,000 Units/ML Vial SUBCUT SCH ×2 (08:54→20:24)
[2018-01-22] MEDS: levETIRAcetam 500 MG Tab PO SCH ×2 (08:59→17:33)
--- NOTE | 2018-01-22 11:54 | PN ---
DATE SEEN: 01/22/2018 SUBJECTIVE: Kaela Small is a 77-year-old female, admitted with acute respiratory discomfort, marked hypernatremia, and concerns about a metabolic reason. Central ADH, central diabetes insipidus is a clinical concern. Normalization has occurred. Serum and urine osmolality pending at the time of this dictation. 01/11/2018 sodium 148, potassium 3.4, chloride 116. GFR had been depressed 29, 40, 53, and now 60. Intake of fluids has been inadequate. OBJECTIVE: VITAL SIGNS: 39.5, 177/37, mean pressure 50, 20 is the respiration, 94% on 1.5 L. GENERAL: Really noncommunicative. No obvious distress. NECK: Benign. Thyroid small. CHEST: Clear in all lung barker, though poor exchange. HEART: Distant heart sounds. ABDOMEN: Benign. IMPRESSION: 1. Hypernatremia, resolved. 2. Inadequate hydration. PLAN: Needs to be simply on the basis of inadequate fluid. Studies to be performed today. Plan discharge tomorrow. /[id number] /ELLEN
[2018-01-23] MEDS: Heparin Sodium 5,000 Units/ML Vial SUBCUT SCH (08:33)
[2018-01-23] MEDS: Amoxicillin/Clavulanate K 500-125 MG Tab PO SCH (08:33)
[2018-01-23] MEDS: levETIRAcetam 500 MG Tab PO SCH (09:30)
--- NOTE | 2018-01-23 10:44 | PN ---
DATE SEEN: 01/21/2018 HISTORY OF PRESENT ILLNESS: Kaela Small is a 77-year-old female, who presented with complicated hypernatremia. Second visit for similar concerns. Marked improvement in the meantime. Metabolic panel today, 148 sodium, 3.4 potassium, 116 chloride. GFR now has improved to greater than 60. Intravenous line was discontinued due to infiltration yesterday. No clinical change of consequence. Recent chest x-ray report noted antibiotic therapy on board. PHYSICAL EXAMINATION: Vital Signs: 52.6 kg, 36.4 degrees Fahrenheit, pulse is 83, 102/44. General: Pretty nonawake. Appears otherwise comfortable, in no respiratory distress. Chest: Decreased breath sounds, both bases. Heart: Distant heart sounds. No ectopy or murmur. Abdomen: Benign. ASSESSMENT: 1. Pneumonia. 2. Hypernatremia. PLAN: Work up of high ADH is a concern, urine osmolality, serum osmolality, cannot measure 24-hour urine output. Continue antibiotic therapy, care for the weekend given, discharge status to longterm. /[id number] /ELLEN
--- NOTE | 2018-01-24 11:01 | DISCH ---
DISCHARGE DATE: 01/23/2018 REASON FOR VISIT: Complicated hypernatremia and hyperchloremia with secondary associated pneumonia. SECONDARY DIAGNOSES: 1. Profound mental retardation. 2. Pulmonary fibrosis. 3. Arthritis. 4. Osteoporosis. 5. History of hydrocephalus. HISTORY OF PRESENT ILLNESS: Kaela Small is a 77-year-old female, a [facility] resident, brought to [facility] by Dr. Anderson/Dr. Adiel menard. Not eating. Not drinking. Voiding, with little activity, markedly dehydrated hospitalization. Previous to this admission, hospitalized for 3 weeks for pneumonia. On admission, vital signs are stable. Intravenous fluids and intravenous antibiotics were provided. Free water and D5W were given to normalize sodium, which upon admission was 170. Followup have returned reasonably normal at 148, 152. Potassium 3.3, and chloride 117. GFR has varied from 40 to 48. X-ray revealed, though difficult to interpret, right-sided pneumonia. Initially, IV antibiotics were given, but switched to oral Augmentin. Response was satisfactory. Intake of fluids was a clinical concern. IV fluids of course cannot be maintained forever. PHYSICAL EXAMINATION: VITAL SIGNS: At the time of discharge exam, vital signs 52 kg, 98 is the pulse, blood pressure 94/41, and 94% 2 L per exam. GENERAL: Noncommunicative but more wakeful this morning. NECK: Benign. Thyroid is small. CHEST: Coarse rhonchi. Good air exchange. HEART: Distant heart sounds. Grade 2/6 systolic ejection murmur. ABDOMEN: Benign. The surgical scar has well healed. EXTREMITIES: Well perfused. ASSESSMENT: 1. Complicated hypernatremia. 2. Pneumonia. PLAN: Discharge home on Augmentin and fluids. Strong instructions were given for adequate fluids. Complementary care and well being. SURGICAL PROCEDURES: None. CONSULTATIONS: None. /[id number] /ELLEN
== END 2018-01-23 14:10 | DRG 640 ==
LOC: FB.MS 11:42 → FB.ICU 12:14 → FB.MS 01-18 09:41
PROVIDERS: ADMIT Family Medicine; ATTEND Family Medicine
DX: E87.0 Hyperosmolality and hypernatremia (principal); J18.9 Pneumonia, unspecified organism; N17.9 Acute kidney failure, unspecified; I50.30 Unspecified diastolic (congestive) heart failure; F73 Profound intellectual disabilities; E86.0 Dehydration; Z66 Do not resuscitate; Z51.5 Encounter for palliative care; I27.20 Pulmonary hypertension, unspecified; G40.909 Epilepsy, unspecified, not intractable, without status epilepticus; M19.90 Unspecified osteoarthritis, unspecified site; E87.8 Other disorders of electrolyte and fluid balance, not elsewhere classified; Z86.69 Personal history of other diseases of the nervous system and sense organs
CPT/HCPCS: 36415; 51702; 71045; 80048; 80053; 81001; 83605; 83735; 83930; 83935; 84295; 85025; 87040; A9270-GY; J0456; J0696; J1644; J3490; J7040; J7050; J7060